=== PATIENT | male | born 1955 | race African-American/Black ===

== ENCOUNTER 2019-08-23 18:27 | Inpatient (IN) | payer OTHER ==
[~2019-08-23] VITALS: Ht 172.7 cm; Wt 49.9 kg
[2019-08-23 18:27] VITALS: BP 90/45
--- NOTE | 2019-08-23 18:27 | NUR ---
Patient PORTER QUINTANILLA from [facility], transferred to bed 6. RN evaluating patient at bedside.
[2019-08-23] MEDS ORDERED: ASCO500T45 PO (18:46)
[2019-08-23] MEDS ORDERED: DONE10TA10 PO (18:46)
[2019-08-23] MEDS ORDERED: ALLO100T21 PO (18:46)
[2019-08-23] MEDS ORDERED: TAMS0.4C96 PO (18:46)
[2019-08-23] MEDS ORDERED: PANT40EC PO (18:46)
[2019-08-23] MEDS ORDERED: HYDR-1100 PO (18:46)
[2019-08-23] MEDS ORDERED: DOCU-299 PO (18:46)
[2019-08-23] MEDS ORDERED: FLOR250 PO (18:46)
[2019-08-23] MEDS ORDERED: ACET-2619 PO (18:46)
[2019-08-23] MEDS ORDERED: NIFE60TE5 PO (18:46)
[2019-08-23] MEDS ORDERED: BISA-246 RC (18:46)
[2019-08-23] MEDS ORDERED: NA P133E RC (18:46)
[2019-08-23] MEDS ORDERED: FERR325E14 PO (18:46)
[2019-08-23] MEDS ORDERED: VITA1TAB44 PO (18:46)
[2019-08-23] MEDS ORDERED: CARV12.5 PO (18:46)
[2019-08-23] MEDS ORDERED: DOXA2TAB1 PO (18:46)
[2019-08-23] MEDS ORDERED: TRAV5SOL OP (18:46)
[2019-08-23] MEDS ORDERED: ERGO500028 PO (18:46)
--- NOTE | 2019-08-23 19:15 | NUR ---
REPORT GIVEN FROM JACKIE JOSHI. TRANSFER OF CARE GIVEN.
--- NOTE | 2019-08-23 19:15 | NUR ---
Pt report given to MADELYN Gann. Transfer of care at this time.
--- NOTE | 2019-08-23 19:16 | NUR ---
PT 64 Y/O MALE PORTER FROM [facility] FOR EVALUATON OF LEFT FOOT WOUND AND HEMOGLOBIN OF 6.2. PT BELONS TO DR. BAILEY [facility] WHO REQUESTED PATIENT TO BE SEEN HERE. PT WAS AT DIALYSIS TODAY AND ONLY RECEIVED 58 MINUTES WHEN THE ACCESS INFILTRATED PER DIALYSIS CENTER. PT ACCESS SITE IN LEFT UPPER ARM. PT AXO 2- PERSON, PLACE. PT RESPIRATIONS ARE EVEN AND UNLABORED. SKIN IS WARM AND DRY TO TOUCH. WOUND NOTED ON L FOOT. AND L BUTTOCKS AREA. PT HAS R ABOVE THE KNEE AMPUTATION. PT RESTING IN BED EYES OPEN. BED IN LOWEST POSITION AND LOCKED IN PLACE. MED HX: DM, HTN ALLERGIES: NKA
--- NOTE | 2019-08-23 19:22 | NUR ---
XRAY AT BEDSIDE.
--- NOTE | 2019-08-23 19:38 | NUR ---
EKG PERFORMED AT BEDSIDE
--- NOTE | 2019-08-23 19:57 | NUR ---
LAB AT BEDSIDE.
[2019-08-23 20:24] LABS: MEAN CORPUSCULAR HEMOGLOBIN 30 pg (27-31); MEAN CORPUSCULAR HGB CONC 30 g/dL (33-37); MEAN CORPUSCULAR VOLUME 99.7 fL (80-94); PLATELET COUNT (AUTO) 383 K/uL (140-450); RED BLOOD CELL COUNT(AUTO) 1.93 MIL/uL (4.20-6.10); RED CELL DISTRIBUTION WIDTH 17.2 % (11.6-13.7); WHITE BLOOD COUNT (AUTO) 19.4 K/uL (4.8-10.8)
--- NOTE | 2019-08-23 20:30 | NUR ---
PT RESTING IN BED HEAD UP EYES OPEN. RESPIRATIONS ARE EVEN AND UNLABORED. SKIN IS WARM AND DRY TO TOUCH. PT DENIES SOB, DENIES PAIN 0/10. PT EATING SANDWHICH AND DRINKING WATER. DAUGHTER AT BEDSIDE. BED IN LOWEST POSITION AND LOCKED IN PLACE. SIDERAIL UP.
[2019-08-23 20:53] LABS: HEMATOCRIT 19.2 % (36-52); HEMOGLOBIN 5.7 g/dL (12.0-18.0)
[2019-08-23 20:57] LABS: LYMPHOCYTES % (MANUAL) 7 % (20-46); MONOCYTES % (MANUAL) 3 % (5-12)
[2019-08-23 20:58] LABS: ALBUMIN 2.1 g/dL (3.4-5.0); ANION GAP 15.8 (8-16); CARBON DIOXIDE 31.1 mmol/L (21-32); POTASSIUM 3.9 mmol/L (3.5-5.1); TOTAL BILIRUBIN 0.4 mg/dL (0.0-1.0)
[2019-08-23 21:00] LABS: PROTHROMBIN TIME 10.8 secs (10.8-13.4)
[2019-08-23 21:01] LABS: CREATININE 4.8 mg/dL (0.7-1.3)
[2019-08-23] MEDS ORDERED: ONDANSETRON 4 MG/2 ML VIAL IVP PRN (21:25)
[2019-08-23] MEDS ORDERED: ACETAMINOPHEN 325 MG TAB PO PRN (21:25)
[2019-08-23] MEDS ORDERED: HYDROcodone/APAP 7.5/325 MG 1 TAB PO PRN (21:25)
--- NOTE | 2019-08-23 21:37 | NUR ---
DAUGHTER STATES SHE WANTS CALL WHEN PT GETS ADMITTED TO ROOM. JERE (DAUGHTER): [phone]
[2019-08-23 22:05] LABS: MAGNESIUM 2.2 mg/dL (1.8-2.4); PHOSPHORUS 6.1 mg/dL (2.5-4.9); THYROID STIMULATING HORMONE 0.66 uIU/mL (0.34-3.74)
--- NOTE | 2019-08-23 22:37 | NUR ---
PT REFUSED TO BE CHANGED OR RECIVE PERINEAL CARE.
--- NOTE | 2019-08-23 22:50 | NUR ---
Patient will be admitted to care of . Admited to TELE. Will go to room 118. Belongings list completed. Report to GLADIS JOSHI.
--- NOTE | 2019-08-23 22:50 | NUR ---
RECEIVED BEDSIDE REPORT FROM FISH MACHINE FEEDER FABIO. PT BROUGHT ON [facility] BEDREST. TRANSFERRED TO WOUND BED WITH 3 NURSES TOLERATED WELL. PT IS AAOX 2. RESPIRATIONS ARE EQUAL AND UNLABORED ON ROOM AIR. LUNG SOUNDS CLEAR. HAS IV ON RAC 20G. AV SHUNT ON SHANTAL PT REFUSED ASSESSMENT OF SHUNT. PT WITH MX WOUNDS. SACRAL PRESSURE ULCER D/C/I, PRESSURE ULCER ON L HEEL, GANGRENE ON L BIG TOE, ULCER TO LATERAL L FOOT. L 2 SMALL TOES AMPUTATED. R AKA. PT CURRENTLY REFUSING ASSESSMENT. C/C ABNORMAL LABS. DX ANEMIA. HGB 5.7 HCT 19.2L. BLOOD TRANSFUSION CONSENT SIGNED BY DAUGHTER AND ER MD. AND READY FOR BUSINESS CENTER MANAGER.MRSA OBTAINED AND SENT TO LAB. EDUCATED PT ON NEED FOR UA HAS A SUPRAPUBIC PUCKETT CATH. PT ALSO REFUSED. PT STATES, "NO, DONT TOUCH ME!" PT WITH CURRENT BM REFUSING TO BE CLEAN YELLING NO WHEN EDUCATING HIM ON NEED TO CLEAN. WILL TRY AGAIN LATER. PUCKETT DRAINING CLOUDY YELLOW URINE. LAST HD 08/23/2019 FOR ABOUT AN HOUR, OUTPUT UNKNOWN. VS:111/44 HR 82 97% RA, RR 16 99.1 DENIES PAIN. ORIENTED PT TO ROOM, CALL LIGHT, VISITING HOURS AND STAFF. CALL LIGHT IS WITHIN REACH. WILL CONTINUE TO MONITOR.
[2019-08-23 23:00] VITALS: BP 111/44
[2019-08-23] MEDS ORDERED: NACL 0.9% 1,000 ML IV SCH (23:00)
--- NOTE | 2019-08-23 23:15 | NUR ---
BLOOD TRANSFUSION STARTED. PRETRANSFUSION VS:111/44 HR 82 97% RA RR 16 99.1 DENIES PAIN. EDUCATED PT ON POSSIBLE REACTION S/S. PT VERBALIZED UNDERSTANDING. WILL MONITOR CLOSELY FIRST 15MIN.
--- NOTE | 2019-08-23 23:30 | NUR ---
NO S/S OF REACTION NOTED. BLOOD TRANSFUSION RATE INCREASE 100M/H. VS;119/49 HR 77, 98.7, 98% DENIES PAIN.
--- NOTE | 2019-08-24 | NUR ---
PT IN BED NO S/S OF PAIN OR DISTRESS NOTED. FLUIDS GOING ORDERED, PT DECLINED TO BE TURNED AND REPOSITIONED IN BED, SAYING THAT HE IS COMFORTABLE. V/S FOLLOWS: T 98.4 P 88 R 18 B/P 116/53 02 99% ON ROOM AIR. PT HAS NO C/C OF PAIN OR DISTRESS NOTED. DRESSINGS INTACT.
[2019-08-24] MEDS ORDERED: VANCOMYCIN PER PHARMACY MC PRN (00:55)
[2019-08-24] MEDS ORDERED: DEXTROSE 50% 50 ML SYR IVP PRN (00:55)
[2019-08-24] MEDS ORDERED: VANCOMYCIN 1,000 MG in DEXTROSE 5% 250 ML IV SCH (02:00)
[2019-08-24] MEDS ORDERED: VANCOMYCIN 1,000 MG VIAL ONE (02:45)
[2019-08-24] MEDS: DEXT 5% / NACL 0.45% 1,000 ML IV SCH (02:53)
--- NOTE | 2019-08-24 02:53 | NUR ---
NEW IV INSERTED ON R HAND 22G. VANCO NOW INFUSING PER ORDERS. PT TOLERATED WELL. ALL SAFETY MEASURES ARE IN PLACE. CALL LIGHT IS WITHIN REACH. WILL CONTINUE TO MONITOR.
--- NOTE | 2019-08-24 03:15 | NUR ---
BLOOD COMPLETE AT 0300. POST TRANSFUSION VS:98.4, 84, 124/48, DENIES PAIN. ALL SAFETY MEASURES ARE IN PLACE. WILL CONTINUE TO MONITOR
--- NOTE | 2019-08-24 03:50 | NUR ---
SECOND UNIT OF BLOOD STARTED. PRETRANSFUSION VS: 98.9 HR 83 18 135/54 DENIES PAIN. CALL LIGHT IS WITHIN REACH. WILL CONTINUE TO MONITOR.
[2019-08-24 04:00] VITALS: BP 136/62
--- NOTE | 2019-08-24 04:05 | NUR ---
NO S/S OF REACTION NOTED. VS: 98.4 HR 76 121/46 DENIES PAIN OR SOB. RATE INCREASE TO 100ML/H. CALL LIGHT IS WITHIN REACH. WILL CONTINUE TO MONITOR.
[2019-08-24] MEDS ORDERED: PIPERACILLIN/TAZOBACTAM 2.25 GM VIAL IV ONE (04:50)
[2019-08-24] MEDS: PIPERACILLIN/TAZOBACTAM 2.25 GM in DEXTROSE 5% 50 ML IV SCH ×2 (04:56→13:21)
--- NOTE | 2019-08-24 05:00 | NUR ---
PT IS SLEEPING COMFORTABLY IN BED WITH EYES CLOSED CHEST RISE AND FALL NOTED. NO S/S OF REACTION. VSS. CALL LIGHT IS WITHIN REACH.
[2019-08-24] MEDS: PANTOPRAZOLE 40 MG TABEC PO SCH (06:04)
[2019-08-24] MEDS: BLOOD GLUCOSE MONITORING 1 DEV DEV FS SCH ×4 (06:09→21:00)
--- NOTE | 2019-08-24 06:50 | NUR ---
2 UNIT OF PRBC COMPLETE. NO S/S OF REACTION. VSS. BLOOD GLUCOSE 144 NO COVERAGE NEEDED. ALL SAFETY MEASURES ARE IN PLACE. CALL LIGHT IS WITHIN REACH. PT IS STABLE. WILL ENDORSE TO DAY RN.
--- NOTE | 2019-08-24 07:20 | NUR ---
RECEIVED REPORT FROM TUTORING ASSISTANT NURSE FOR CONTINUITY OF CARE. PATIENT LYING DOWN IN BED, NO DISTRESS NOTED. DENIES ANY PAIN. AAOX2, CALM, COOPERATIVE, CONFUSED. SKIN COLOR APPROPRIATE TO ETHNICITY, WARM TO TOUCH. HAS LEFT FOOT GANGRENE AND SACRALCOCCYX WOUND, DRESSING DRY AND INTACT. SUPRAPUBIC CATHETER IN PLACE. IV SITE INTACT, PATENT, AND INFUSING IVF PER MD ORDERS. 2 UNITS OF PRBC COMPLETED BY NIGHT RN. RESPIRATIONS EVEN, UNLABORED, ON ROOM AIR. SAFETY MEASURES IN PLACE, CALL LIGHT WITHIN REACH. WILL CONTINUE TO MONITOR.
[2019-08-24 08:00] VITALS: BP 134/55
--- NOTE | 2019-08-24 08:42 | NUR ---
PATIENT HAS BEEN SCREENED AND CATEGORIZED HIGH NUTRITION RISK. PATIENT WILL BE SEEN WITHIN 1-2 DAYS OF ADMISSION. 08/24/19-08/25/[address]
--- NOTE | 2019-08-24 09:00 | NUR ---
WIRELESS WATCHER AT BEDSIDE LOOKING AT LEFT FOOT AND REVIEWING PLAN OF CARE WITH PATIENT. WILL CONTINUE TO MONITOR.
[2019-08-24 09:12] LABS: CHOL/HDL RATIO 2.7 (1-4.5)
[2019-08-24] MEDS: FAMOTIDINE 20 MG TAB PO SCH (10:04)
[2019-08-24] MEDS: CARVEDILOL 12.5 MG TAB PO SCH ×2 (10:04→16:48)
[2019-08-24] MEDS: NIFEdipine 60 MG TABER PO SCH (10:04)
[2019-08-24] MEDS: ALLOPURINOL 100 MG TAB PO SCH (10:04)
[2019-08-24] MEDS: DOCUSATE SODIUM 100 MG GELCAP PO SCH (10:04)
--- NOTE | 2019-08-24 11:04 | NUR ---
DC PLANNIN YRS OLD MALE PATIENT WAS ADMITTED [facility] FOR GANGRENE OF LEFT FOOT WITH A DX OF ANEMIA. PT HAS A HX OF ESRD ON DIALYSIS TTHS , HTN AND RT BKA. PT RESIDES AT [facility]. PT IS TREATED FOR H/H 5.7, WBC 19.4 WELL THE LEFT FOOT INFECTION, X-RAY OF LEFT FOOT PENDING. ADMINISTERED IV ABX VANCOMYCIN AND ZOSYN . 2 UNITS PRBC ORDERED , PODIATRY AND WOUND CONSULT, BLOOD AND WOUND CULTURE PENDING, CONTINUE HOME MEDICATION . DC PLAN TO GO BACK TO [facility] WHEN STABLE. Addendum: 08/26/19 at 1607 by Nimo Ayala CM POST OP DAY 1-S/P LEFT AKA 08/25/[address] WHAT[facility]. SURGICAL, CARDIO AND NEPHRO CONSULTS IN PLACE. STILL ON ZOSYN AND VANCO. DC PLAN TO [facility] PENDING SURGICAL RECOMMENDATIONS. Addendum: 08/27/19 at 1340 by Shannen Gr CM DC PLANNING: POST OP DAY #2 OF LEFT SIMIN , CONTINUE IV ABX VANCOMYCIN AND ZOSYN , HEMODIALYSIS TODAY. DC PLAN TO GO HOME WHEN STABLE CM TO FOLLOW Addendum: 09/01/19 at 1054 by Michelle POWELL Per Charge Nurse Ene, patient is not on isolation. I informed Chanelle from [facility] / , patient is ready to return to their facility. I faxed patient's clinical information to [facility] fax number . Addendum: 09/01/19 at 1515 by Michelle POWELL [facility], patient may go to room 204 bed 2 today, accepting MD is , Charge Nurse Ene made aware.
[2019-08-24 12:00] VITALS: BP 105/66
[2019-08-24 12:01] LABS: ANION GAP 14.8 (8-16); CARBON DIOXIDE 29.9 mmol/L (21-32); POTASSIUM 4.7 mmol/L (3.5-5.1)
[2019-08-24 12:04] LABS: BASOPHILS # (AUTO) 0.1 K/uL (0.00-0.22); BASOPHILS % (AUTO) 0.5 % (0.0-2.0); EOSINOPHILS # (AUTO) 0.1 K/uL (0-0.4); EOSINOPHILS % (AUTO) 0.4 % (0.0-4.0); HEMOGLOBIN 8.5 g/dL (12.0-18.0); LYMPHOCYTES # (AUTO) 1.3 K/uL (2.0-11.5); LYMPHOCYTES % (AUTO) 7.4 % (20.5-51.1); MEAN CORPUSCULAR HEMOGLOBIN 29 pg (27-31); MEAN CORPUSCULAR HGB CONC 32 g/dL (33-37); MEAN CORPUSCULAR VOLUME 91.9 fL (80-94); MONOCYTES # (AUTO) 0.6 K/uL (0.8-1.0); MONOCYTES % (AUTO) 3.4 % (1.7-9.3); NEUTROPHILS # (AUTO) 15.6 K/uL (1.8-7.7); NEUTROPHILS % (AUTO) 88.3 % (42.2-75.2); PLATELET COUNT (AUTO) 417 K/uL (140-450); RED BLOOD CELL COUNT(AUTO) 2.94 MIL/uL (4.20-6.10); RED CELL DISTRIBUTION WIDTH 21.4 % (11.6-13.7); WHITE BLOOD COUNT (AUTO) 17.7 K/uL (4.8-10.8)
[2019-08-24 12:05] LABS: CREATININE 5.2 mg/dL (0.7-1.3)
--- NOTE | 2019-08-24 12:59 | NUR ---
WOUND CARE EVALUATION NOTES: REASON FOR EVALUATION: SACRALCOCCYX WOUND WOUND ASSESSMENT DONE ON WITH THIS 64 Y/O MALE PATIENT ADMITTED FROM SNF TO [facility] WITH INITIAL DIAGNOSIS OF ANEMIA. PT. ADMITTED WITH UN-STAGEABLE PRESSURE ULCER TO SACRAL AREA AND HD T-TH-SAT. PAST MEDICAL HX: HTN, DM, DEMENTIA, DEPRESSION, PVD, GERD CONTRACTURES OF BLE AND RIGHT AKA AND LEFT 2ND DIGIT TOE AMPUTATION, ALL ABOVE INFORMATION OBTAINED FROM H&P. PT. IS AWAKE, FOLLOW DIRECTIONS, PT. SKIN WARM TO TOUCH, NEEDS ASSISTANCE IN TURNING. SUPRA PUBIC CATH PATENT WITH YELLOW URINE OUTPUT. INITIAL PLAN OF CARE DISCUSSED WITH PRIMARY RN. LEFT FOOT NOT ASSESSED AT THIS TIME DUE TO PT. WAS SEEN AND TREATMENT APPLIED THIS AM BY DR. KUHN, IN HOUSE PODIATRY SERVICE. PLEASE REFER TO PODIATRY CONSULTATION NOTE. PT. WAS SEEN BY SURGEON LEFT FOOT ULCERS AND WET GANGRENE AND PENDING SURGICAL INTERVENTION. COMORBIDITIES RELATED TO DELAY WOUND HEALING AND FURTHER SKIN BREAKS: INFECTION, DM, KIDNEY FAILURE WITH HD, LOW ALBUMIN LEVEL AND HOB ELEVATED MOST OF TIMES DUE TO MEDICAL REASONS. INTEGUMENTARY: -SUPRAPUBIC ALANNA-OSTOMY SKIN DRY AND INTACT -RIGHT AKA STUMP SKIN INTACT -PERIANAL EXTERNAL HEMORRHOIDS SKIN MOIST AND -SACRAL PRESSURE ULCER UN-STAGEABLE, 3X3.5CM, WOUND BED 100% YELLOW SLOUGH, ALANNA-WOUND HEALED SCAR PALE IN COLOR, NO ODOR. RECOMMENDATIONS: -CLEANSE LEFT FOOT WITH NS, APPLY SOAKED BETADINE XU. 4X4. WRAP WITH KERLIX ROLL SECURED WITH TAPE. QD AND PRN IF SOILING -CLEANSE SACRAL PRESSURE ULCER WITH NS. PAT DRY APPLY THERAHONEY GEL TO WOUND BED AND COVER WITH OPTI FOAM QD AND PRN IF SOILING . -CONTINUE TO FOLLOW SURGEON LEFT FOOT POSSIBLE AMPUTATION -OFFLOAD BILATERAL HEELS BY PLACING PILLOWS UNDER CALVES AT ALL TIMES, UNLESS OTHERWISE CONTRAINDICATED -KEEP SKIN CLEAN AND DRY AT ALL TIMES. -PRESSURE REDISTRIBUTION SURFACE THERAPY. RECOMMENDATIONS DISCUSSED WITH PRIMARY RN. PLEASE CONTACT WOUND CARE NURSE FOR ANY QUESTIONS AND CHANGES IN SKIN CONDITION.
[2019-08-24] MEDS: GAUZE TP SCH (13:21)
--- NOTE | 2019-08-24 13:22 | NUR ---
PATIENT LYING DOWN IN BED SLEEPING, AROUSABLE BY VOICE. NO DISTRESS NOTED. CONDITION UNCHANGED. SCHEDULED MEDICATIONS DUE GIVEN. WILL CONTINUE TO MONITOR.
[2019-08-24] MEDS: THERAHONEY GEL 42.5 GM TP SCH (13:59)
--- NOTE | 2019-08-24 14:22 | NUR ---
HD NURSE AT BEDSIDE TO PERFORM HD. WILL CONTINUE TO MONITOR.
--- NOTE | 2019-08-24 15:39 | NUR ---
SAUL assessment/discharge plan High Risk DC Screen Yes Name: Julieta Kevin Home Relationship: daughter Pre-Admission Living Arrangements: SNF Healthcare Decision Maker: Other Other: Julieta Kevin Advance Directive No Tentative Discharge Plan Summary: Patient is a 64 year old male admitted for anemia. I called and spoke with Venessa from [facility] , patient is on a 7 day bed hold and is one of their long goods drier patients. Venessa referred me to speak with patient's nurse Nas at [facility] regarding Advance Directive. Per Nas, patient does not have an Advance Directive. Electronics Maintenance Technician and/or Architecture Instructor will follow up as needed. Signature: SAUL Allan Date: Aug 24, 2019
[2019-08-24] MEDS: EPOETIN ALFA 10,000 UNITS/ML VIAL IV SCH (15:57)
[2019-08-24 16:00] VITALS: BP 130/58
--- NOTE | 2019-08-24 16:17 | NUR ---
08/24/19 RD INITIAL ASSESSMENT COMPLETED PLEASE REFER TO NUTRITION ASSESSMENT UNDER CARE ACTIVITY FOR ESTIMATED NUTRITIONAL NEEDS. 1. CONTINUE CCHO 60GM AND HIGH PROTEIN DIET TOLERATED 2. RECOMMEND NEPRO TID AND TAYO BID FOR WOUND HEALING 3. ENCOURAGE INCREASING PO INTAKE 4. RD TO FOLLOW-UP 2-3 DAYS, HIGH RISK MOON BOO, RD
--- NOTE | 2019-08-24 17:00 | NUR ---
HD COMPLETED, 2L OUT. PATIENT IN STABLE CONDITION
--- NOTE | 2019-08-24 19:23 | NUR ---
GAVE REPORT TO CONSULTING DATABASE ADMINISTRATOR NURSE FOR CONTINUITY OF CARE. PATIENT IN STABLE CONDITION.
--- NOTE | 2019-08-24 19:30 | NUR ---
RECEIVED REPORT FROM MARIAH JOSHI DAYSHIFT NURSE AT BEDSIDE FOR CONTINUITY OF CARE, PT IN STABLE CONDITION.
[2019-08-24 20:00] VITALS: BP 122/59
--- NOTE | 2019-08-24 20:00 | NUR ---
PT IN BED SITTING UP AOX1, ON ROOM AIR WITH NO S/S OF PAIN OR DISTRESS NOTED. PT NOTED WITH CONTRACTIONS ON UPPER AND LOWER LIMBS. HE ALSO HAS A DRESSING ON LEFT FOOT , WHICH IS NOTED WITH GANGRENE. DRESSING DRY AND INTACT WITH MINIMAL DRAINAGE. PT ALSO HAS R AKA. HE HAS 2 IV SITES RAC 20G AND R/H 22G . PT RUNNING D5 AND 1/2 NS VIA R HAND. HE HAS A LEFT AV SHUNT FELT THRILL AND BRUIT.PT HAS A SUPRAPUBIC PUCKETT CATH DRAINING YELLOW URINE. ALL FALLS PRECAUTIONS IN PLACE. VITAL SIGNS FOLLOWS: T 98.4 P 88 R 18 B/P 116/53 02 99% ON ROOM AIR. ALL FALLS PROTOCOL IN PLACE.
[2019-08-24] MEDS: LATANOPROST 0.005% OP 2.5 ML BTL OP SCH (21:00)
[2019-08-24] MEDS ORDERED: NON-FORMULARY ITEM (Travoprost (Travatan Z 5 Ml) 1 DROP) OP SCH (21:00)
--- NOTE | 2019-08-24 21:00 | NUR ---
PT RECEIVED ALL DUE MEDS AT THIS TIME. PT WAS TURNED, CHANGED AND REPOSITIONED. ALL FALLS PRECAUTIONS IN PLACE AND CALL THOMAS IN REACH.
[2019-08-25] VITALS: BP 116/53
--- NOTE | 2019-08-25 | NUR ---
PT WITH BP OF 87/41, WILL RETAKE BLOOD PRESSURE Addendum: 08/25/19 at 2333 by Dana Marie RN DELETE NOTE
--- NOTE | 2019-08-25 | NUR ---
PT IN BED NO C/O VOICED HE HAS FLUIDS D5 1/2 NS RUNNING ORDERED VIA RAC. PT DECLINED TO BE TURNED AND REPOSITIONED AT THIS TIME. V/S FOLLOWS: T 98.1 P 60 R 18 B/P 107/41 02 92% ON ROOM AIR. ALL FALLS PRECAUTIONS IN PLACE.
[2019-08-25] MEDS: NIFEdipine 60 MG TABER PO SCH ×3 (01:40→22:02)
[2019-08-25] MEDS: PIPERACILLIN/TAZOBACTAM 2.25 GM in DEXTROSE 5% 50 ML IV SCH ×4 (01:40→22:01)
[2019-08-25] MEDS: hydrALAZINE 25 MG TAB PO SCH ×2 (01:40→22:03)
[2019-08-25] MEDS: DONEPEZIL 10 MG TAB PO SCH ×2 (01:41→22:04)
[2019-08-25] MEDS: DOXAZOSIN 2 MG TAB PO SCH ×2 (01:41→22:03)
[2019-08-25] MEDS: TAMSULOSIN 0.4 MG CAP PO SCH ×2 (01:42→22:07)
[2019-08-25] MEDS: DOCUSATE SODIUM 100 MG GELCAP PO SCH ×4 (01:42→22:05)
[2019-08-25 04:00] VITALS: BP 113/53
--- NOTE | 2019-08-25 04:00 | NUR ---
V/S STABLE IV SITE ON R AC INTACT R HAND IV INFILTRATED.
[2019-08-25] MEDS: PANTOPRAZOLE 40 MG TABEC PO SCH (05:53)
[2019-08-25] MEDS: BLOOD GLUCOSE MONITORING 1 DEV DEV FS SCH ×4 (05:54→21:50)
[2019-08-25] MEDS: DEXT 5% / NACL 0.45% 1,000 ML IV SCH (05:55)
--- NOTE | 2019-08-25 06:30 | NUR ---
IV SITE INFILTRATED, X5 ATTEMPTS COULD NOT ADMINISTER AM ZOSYN NO IV ACCESS, WILL ENDORSE TO AM SHIFT , F/S 131 NO COVERAGE NEEDED.
--- NOTE | 2019-08-25 07:20 | NUR ---
RECEIVED REPORT FROM DAIRY STORE MANAGER NURSE FOR CONTINUITY OF CARE. PATIENT LYING DOWN IN BED, NO DISTRESS NOTED. DENIES ANY PAIN. AAOX2, CALM, COOPERATIVE, CONFUSED. SKIN COLOR APPROPRIATE TO ETHNICITY, WARM TO TOUCH. HAS LEFT FOOT GANGRENE AND SACRALCOCCYX WOUND, DRESSING DRY AND INTACT. SUPRAPUBIC CATHETER IN PLACE. IV SITE LEAKING, WILL INSERT NEW ONE. RESPIRATIONS EVEN, UNLABORED, ON ROOM AIR. SAFETY MEASURES IN PLACE, CALL LIGHT WITHIN REACH. WILL CONTINUE TO MONITOR.
[2019-08-25 07:44] LABS: ANION GAP 13.6 (8-16); CARBON DIOXIDE 29.4 mmol/L (21-32); CREATININE 3.8 mg/dL (0.7-1.3)
[2019-08-25 07:51] LABS: MAGNESIUM 1.8 mg/dL (1.8-2.4); PHOSPHORUS 5.3 mg/dL (2.5-4.9)
[2019-08-25 08:00] VITALS: BP 105/57
[2019-08-25] MEDS: CARVEDILOL 12.5 MG TAB PO SCH ×2 (08:00→17:00)
[2019-08-25 08:05] LABS: BASOPHILS # (AUTO) 0.1 K/uL (0.00-0.22); BASOPHILS % (AUTO) 0.9 % (0.0-2.0); EOSINOPHILS % (AUTO) 0.3 % (0.0-4.0); HEMATOCRIT 25.9 % (36-52); HEMOGLOBIN 8.2 g/dL (12.0-18.0); LYMPHOCYTES # (AUTO) 1.4 K/uL (2.0-11.5); LYMPHOCYTES % (AUTO) 8.2 % (20.5-51.1); MEAN CORPUSCULAR HEMOGLOBIN 29 pg (27-31); MEAN CORPUSCULAR HGB CONC 32 g/dL (33-37); MEAN CORPUSCULAR VOLUME 91.8 fL (80-94); MONOCYTES # (AUTO) 0.5 K/uL (0.8-1.0); NEUTROPHILS # (AUTO) 14.7 K/uL (1.8-7.7); NEUTROPHILS % (AUTO) 87.6 % (42.2-75.2); PLATELET COUNT (AUTO) 407 K/uL (140-450); RED BLOOD CELL COUNT(AUTO) 2.82 MIL/uL (4.20-6.10); WHITE BLOOD COUNT (AUTO) 16.8 K/uL (4.8-10.8)
[2019-08-25 08:07] LABS: FOLIC ACID > 20.00 ng/mL (>3.0)
[2019-08-25] MEDS: ALLOPURINOL 100 MG TAB PO SCH (09:44)
[2019-08-25] MEDS: FAMOTIDINE 20 MG TAB PO SCH (09:45)
--- NOTE | 2019-08-25 09:57 | NUR ---
PATIENT LYING DOWN IN BED. NO DISTRESS NOTED. DENIES ANY PAIN. SCHEDULED MEDICATIONS DUE GIVEN. WILL CONTINUE TO MONITOR.
[2019-08-25] MEDS ORDERED: VANCOMYCIN 1,000 MG in DEXTROSE 5% 250 ML IV SCH (11:00)
[2019-08-25 12:00] VITALS: BP 117/52
[2019-08-25] MEDS: THERAHONEY GEL 42.5 GM TP SCH (13:56)
[2019-08-25] MEDS: GAUZE TP SCH (13:56)
--- NOTE | 2019-08-25 13:58 | NUR ---
PATIENT SITTING DOWN IN BED WATCHING TV. NO DISTRESS NOTED. DENIES ANY PAIN. SCHEDULED MEDICATIONS DUE GIVEN. WILL CONTINUE TO MONITOR.
--- NOTE | 2019-08-25 15:34 | NUR ---
OR NURSES AT BEDSIDE TO TAKE PATIENT FOR LEFT AKA. WILL CONTINUE OT MONITOR WHEN PATIENT RETURNS ON UNIT.
[2019-08-25] MEDS ORDERED: PROPOFOL 200 MG/20 ML VIAL IV ONE (15:40)
[2019-08-25] MEDS ORDERED: SEVOFLURANE 250 ML BTL INH ONE (15:40)
[2019-08-25] MEDS ORDERED: BUPIVACAINE-MPF 0.25% 30 ML VIAL INJ ONE (15:47)
[2019-08-25 16:00] VITALS: BP 115/63
[2019-08-25] MEDS ORDERED: NACL 0.9% 1,000 ML IV SCH (16:37)
[2019-08-25] MEDS ORDERED: diphenhydrAMINE 50 MG/ML VIAL IVP PRN (16:40)
[2019-08-25] MEDS ORDERED: HYDROmorphone 1 MG/ML AMP IVP PRN (16:40)
[2019-08-25] MEDS ORDERED: ONDANSETRON 4 MG/2 ML VIAL IVP PRN (16:40)
--- NOTE | 2019-08-25 17:56 | NUR ---
PATIENT BACK FROM OR. PATIENT AWAKE, CALM, COOPERATIVE, DENIES PAIN. IN STABLE CONDITION. WILL CONTINUE TO MONITOR.
--- NOTE | 2019-08-25 18:01 | NUR ---
SCHEDULED BLOOD PRESSURE MEDICATION NOT GIVEN AT THIS TIME PATIENT JUST RETURNED FROM SURGERY AND VITALS ARE WNL.
--- NOTE | 2019-08-25 19:25 | NUR ---
GAVE REPORT TO SEAL EXTRUSION OPERATOR NURSE FOR CONTINUITY OF CARE. PATIENT IN STABLE CONDITION.
--- NOTE | 2019-08-25 19:26 | NUR ---
PT AWAKE ALERT O X 2,BED BOUND, WITH OLD R AKA, AND NEW L AKA JUST RECENTLY DONE TODAY 08/25/[address] WHATLEY. PT IN SUPOINE POSITION PROPPLED WITH PILLOWS ON HIS BILATERAL LE. WITH ONGOING IVF PATENT AND INTACT R AC G 22. DAUGHTER JOSELITO AT BEDSIDE. PLACED ON FALL RISK PRECAUTION, CALL LIGHT WITHIN REACH.WILL CONTINUE TO MONITOR
[2019-08-25 19:51] VITALS: BP 121/59
--- NOTE | 2019-08-25 20:00 | NUR ---
PT TRIED TO GET URINE C/S BUT PT IS OLIGURIC, NO URINE COMING OUT FROM THE CATHETER. URINE BAG CONTENTS WERE UNSTERILE IF I GET IT FROM THERE. WILL WAIT FOR FRESH URINE TO COME OUT OF CATHETER. Addendum: 08/25/19 at 2340 by Dana Marie RN PT HAS A SUPRAPUBIC CATHETER
[2019-08-25] MEDS: LATANOPROST 0.005% OP 2.5 ML BTL OP SCH (22:11)
[2019-08-25] MEDS ORDERED: CRUSHER, PILL MC ONE (22:24)
--- NOTE | 2019-08-25 23:20 | NUR ---
CLEANED PT, SMALL BM NOTED, TURNED PATIENT. TOLERATED PROCEDURE, PT NOT IN PAIN . NOT FACIAL GRIMACING
--- NOTE | 2019-08-25 23:33 | NUR ---
PT WITH BP OF 87/41, WILL RETAKE BLOOD PRESSURE
[2019-08-26] MEDS ORDERED: NACL 0.9% 250 ML IV ONE
--- NOTE | 2019-08-26 | NUR ---
RETOOK PT'S BP= 89/40. INFORMED DR. JASSO. AND WILL ORDER BOLUS. WILL CARRY OUT ORDER
[2019-08-26 00:56] VITALS: BP 90/47
[2019-08-26] MEDS: DEXT 5% / NACL 0.45% 1,000 ML IV SCH (03:00)
[2019-08-26 04:00] VITALS: BP 99/44
--- NOTE | 2019-08-26 04:00 | NUR ---
PTS LATEST BP IS 99/44, HR 72, DR. JASSO AWARE.
[2019-08-26] MEDS: BLOOD GLUCOSE MONITORING 1 DEV DEV FS SCH ×4 (05:23→20:28)
[2019-08-26] MEDS: PIPERACILLIN/TAZOBACTAM 2.25 GM in DEXTROSE 5% 50 ML IV SCH ×3 (05:23→20:29)
--- NOTE | 2019-08-26 05:54 | NUR ---
INFORMED DR. JASSO THAT ATTEMPTED TO GET THE URINE C/S BUT PT IS OLIGURIC. TRYING TO GET IT FROM THE SUPRAPUBIC CATHETER (ASEPTIC TECHNIQUE) AND NOT IN THE URINE BAG.
[2019-08-26] MEDS: PANTOPRAZOLE 40 MG TABEC PO SCH (06:12)
--- NOTE | 2019-08-26 06:48 | NUR ---
PT AWAKE, ALERT ORIENTED X 2, PT IN STABLE CONDITION, NO SIGNS AND SYMPTOMS OF PAIN, WILL ENDORSE TO NEXT SHIFT
[2019-08-26 06:58] LABS: ANION GAP 12.8 (8-16); CARBON DIOXIDE 27.2 mmol/L (21-32)
[2019-08-26 07:07] LABS: CREATININE 4.7 mg/dL (0.7-1.3)
--- NOTE | 2019-08-26 07:20 | NUR ---
RECEIVED REPORT FROM SCREEN WRITER NURSE FOR CONTINUITY OF CARE. PATIENT LYING DOWN IN BED, NO DISTRESS NOTED. DENIES ANY PAIN. AAOX2, CALM, COOPERATIVE, CONFUSED. SKIN COLOR APPROPRIATE TO ETHNICITY, WARM TO TOUCH. LEFT AKA SURGERY DONE YESTERDAY, DRESSING DRY AND INTACT, NO BLEEDING NOTED. SACRALCOCCYX WOUND NOTED, DRESSING DRY AND INTACT. SUPRAPUBIC CATHETER IN PLACE. IV SITE INTACT, PATENT, AND INFUSING IVF PER MD ORDERS, WILL INSERT NEW ONE. RESPIRATIONS EVEN, UNLABORED, ON ROOM AIR. SAFETY MEASURES IN PLACE, CALL LIGHT WITHIN REACH. WILL CONTINUE TO MONITOR.
[2019-08-26 07:36] LABS: BASOPHILS # (AUTO) 0.1 K/uL (0.00-0.22); BASOPHILS % (AUTO) 0.6 % (0.0-2.0); EOSINOPHILS % (AUTO) 0.3 % (0.0-4.0); HEMATOCRIT 23.8 % (36-52); HEMOGLOBIN 7.6 g/dL (12.0-18.0); LYMPHOCYTES # (AUTO) 1.1 K/uL (2.0-11.5); LYMPHOCYTES % (AUTO) 9.3 % (20.5-51.1); MEAN CORPUSCULAR HEMOGLOBIN 29 pg (27-31); MEAN CORPUSCULAR HGB CONC 32 g/dL (33-37); MEAN CORPUSCULAR VOLUME 91.7 fL (80-94); MONOCYTES # (AUTO) 0.5 K/uL (0.8-1.0); MONOCYTES % (AUTO) 3.8 % (1.7-9.3); NEUTROPHILS # (AUTO) 10.3 K/uL (1.8-7.7); PLATELET COUNT (AUTO) 395 K/uL (140-450); RED CELL DISTRIBUTION WIDTH 20.2 % (11.6-13.7); WHITE BLOOD COUNT (AUTO) 11.9 K/uL (4.8-10.8)
[2019-08-26 07:57] LABS: FERRITIN 2887 ng/mL (30 - 400); TRANSFERRIN 72 mg/dL (200 - 370)
[2019-08-26 08:00] VITALS: BP 124/54
[2019-08-26] MEDS: CARVEDILOL 12.5 MG TAB PO SCH ×2 (08:00→16:32)
[2019-08-26] MEDS: NIFEdipine 60 MG TABER PO SCH ×3 (08:46→23:29)
[2019-08-26] MEDS: FAMOTIDINE 20 MG TAB PO SCH (08:51)
[2019-08-26] MEDS: ALLOPURINOL 100 MG TAB PO SCH (08:51)
[2019-08-26] MEDS: DOCUSATE SODIUM 100 MG GELCAP PO SCH ×2 (08:51→20:32)
--- NOTE | 2019-08-26 09:00 | NUR ---
PATIENT LYING DOWN IN BED WATCHING TV. NO DISTRESS NOTED. DENIES ANY PAIN. SCHEDULED MEDICATIONS DUE GIVEN. WILL CONTINUE TO MONITOR.
[2019-08-26 12:00] VITALS: BP 135/65
[2019-08-26] MEDS: INSULIN LISPRO SLIDING SCALE 100 UNITS/ML VIAL SUBQ PRN (12:49)
[2019-08-26] MEDS: THERAHONEY GEL 42.5 GM TP SCH (12:53)
[2019-08-26] MEDS: GAUZE TP SCH (12:53)
--- NOTE | 2019-08-26 12:56 | NUR ---
PATIENT SITTING DOWN IN BED WITH LUNCH TRAY IN FRONT. NO DISTRESS NOTED. DENIES ANY PAIN. SCHEDULED MEDICATIONS DUE GIVEN. WILL CONTINUE TO MONITOR.
[2019-08-26 16:00] VITALS: BP 127/60
--- NOTE | 2019-08-26 16:32 | NUR ---
PATIENT LYING DOWN IN BED WATCHING TV. NO DISTRESS NOTED. DENIES ANY PAIN. CONDITION UNCHANGED. WILL CONTINUE TO MONITOR.
--- NOTE | 2019-08-26 19:18 | NUR ---
GAVE REPORT TO PRODUCTION UTILITY WORKER NURSE FOR CONTINUITY OF CARE. PATIENT IN STABLE CONDITION.
[2019-08-26 20:00] VITALS: BP 135/68
[2019-08-26] MEDS: LATANOPROST 0.005% OP 2.5 ML BTL OP SCH (20:31)
[2019-08-26] MEDS: DOXAZOSIN 2 MG TAB PO SCH (20:32)
[2019-08-26] MEDS: DONEPEZIL 10 MG TAB PO SCH (20:32)
[2019-08-26] MEDS: TAMSULOSIN 0.4 MG CAP PO SCH (20:32)
[2019-08-26] MEDS: hydrALAZINE 25 MG TAB PO SCH (20:38)
--- NOTE | 2019-08-26 20:40 | NUR ---
CECILE ZIMMER BP 135/68, HR 90, WILL CHECK THE BP LATER AND INFORM DRMakayla Addendum: 08/26/19 at 2041 by Dana Marie RN CECILE HELD, BUT ADALAT WILL BE GIVEN
--- NOTE | 2019-08-26 20:56 | NUR ---
PT SAID HE IS NOT IN PAIN TODAY, LEFT BKA. NO PAIN MEDS GIVEN FOR NOW
--- NOTE | 2019-08-26 21:00 | NUR ---
HELD THE COLACE BEC PT IS HAVING DIARRHEA.
--- NOTE | 2019-08-26 22:55 | NUR ---
TALKED TO MUSA RE; DIALYSIS OF PATIENT ON TUESDAY, MISSED DIALYSIS TUESDAY DUE TO POST-OP L BKA.MUSA SAID WHE WILL FOLOW UP ORDER WITH DR. HENRIQUEZ. MUSA AWARE THAT BUN 40 AND CREA 4.7 GETTEING HIGHER NEEDS DIALYSIS
--- NOTE | 2019-08-26 23:27 | NUR ---
DR. JASSO AWARE, BP IS 153/79, CAN GIVE THE SCHEDULE 2100 DOSE NOW
[2019-08-27] VITALS: BP 153/79
[2019-08-27] MEDS: DEXT 5% / NACL 0.45% 1,000 ML IV SCH (03:00)
[2019-08-27 04:00] VITALS: BP 151/65
--- NOTE | 2019-08-27 04:10 | NUR ---
INFORMED DR. JASSO THAT PT HAS A NEW WOUND ON THE LEFT PERINEUM. DR. JASSO AWARE. SHE SAID SHE WILL PUT THE ORDERS
[2019-08-27] MEDS: PIPERACILLIN/TAZOBACTAM 2.25 GM in DEXTROSE 5% 50 ML IV SCH ×3 (04:52→20:27)
[2019-08-27] MEDS: BLOOD GLUCOSE MONITORING 1 DEV DEV FS SCH ×4 (05:48→19:58)
[2019-08-27] MEDS: PANTOPRAZOLE 40 MG TABEC PO SCH (06:37)
--- NOTE | 2019-08-27 06:56 | NUR ---
PT AWAKE ALERT ORINRTED X 2, PT NON AMBULATORY, PY IN STABLE CONDITION AT THIS TIME. POSSIBLE DIALYSIS TODAY WILL ENDORSE TO NEXT SHIFT.
[2019-08-27 07:12] LABS: ANION GAP 16.6 (8-16); POTASSIUM 4.6 mmol/L (3.5-5.1)
[2019-08-27 07:32] LABS: CREATININE 5.5 mg/dL (0.7-1.3)
--- NOTE | 2019-08-27 07:45 | NUR ---
RECEIVED PATIENT FROM CASING TIER NURSE. PATIENT IS AWAKE. AOX2 TO NAME AND PLACE. RESPIRATIONS EVEN AND UNLABORED, ROOM AIR. VISIBLE CHEST RISE NOTED. ON TELE MONITORING. ABDOMEN SOFT AND ROUND. PATIENT IS NON-AMBULATORY. SKIN WARM AND DRY. BILATERAL BKA NOTED. LEFT BKA HAS DRESSING. NO DRAINAGE NOTED. DR. WHATLEY WILL DO DRESSING CHANGE LATER TODAY. PATIENT HAS SUPRAPUBIC CATHETER. DRESSING INTACT. IV IN THE RIGHT FOREARM G 22 RUNNING D51/2NS AT 20 ML/HR. IV PATENT AND INTACT. BED IN LOW POSITION. CALL LIGHT IS WITHIN REACH. WILL CONTINUE TO MONITOR
[2019-08-27 08:00] VITALS: BP 159/63
[2019-08-27] MEDS: CARVEDILOL 12.5 MG TAB PO SCH ×2 (08:00→17:00)
[2019-08-27] MEDS: NIFEdipine 60 MG TABER PO SCH ×2 (08:48→20:28)
[2019-08-27] MEDS: ALLOPURINOL 100 MG TAB PO SCH (08:48)
[2019-08-27] MEDS: FAMOTIDINE 20 MG TAB PO SCH (08:48)
[2019-08-27] MEDS: EPOETIN ALFA 10,000 UNITS/ML VIAL IV SCH (08:49)
[2019-08-27] MEDS: DOCUSATE SODIUM 100 MG GELCAP PO SCH ×2 (08:58→20:29)
--- NOTE | 2019-08-27 08:58 | NUR ---
GIVEN MORNING MEDICATIONS PO. HEPARIN SUBQ IN THE RIGHT UPPER ARM. HEPARIN 365. PATIENT TOLERATED WELL. EXPLAINED TO PATIENT INDICATIONS. PATIENT VERBALIZED UNDERSTANDING. WILL CONTINUE TO MONITOR
--- NOTE | 2019-08-27 08:58 | NUR ---
HELD COREG BECAUSE PATIENT WILL HAVE DIALYSIS AND COLACE BECAUSE PATIENT HAS DIARRHEA.
[2019-08-27 10:02] LABS: BASOPHILS # (AUTO) 0.1 K/uL (0.00-0.22); EOSINOPHILS % (AUTO) 0.4 % (0.0-4.0); HEMATOCRIT 24.2 % (36-52); HEMOGLOBIN 7.8 g/dL (12.0-18.0); MEAN CORPUSCULAR HEMOGLOBIN 30 pg (27-31); MEAN CORPUSCULAR HGB CONC 32 g/dL (33-37); MEAN CORPUSCULAR VOLUME 92.4 fL (80-94); MONOCYTES # (AUTO) 0.6 K/uL (0.8-1.0); MONOCYTES % (AUTO) 5.3 % (1.7-9.3); NEUTROPHILS # (AUTO) 9.1 K/uL (1.8-7.7); NEUTROPHILS % (AUTO) 84.3 % (42.2-75.2); PLATELET COUNT (AUTO) 381 K/uL (140-450); RED BLOOD CELL COUNT(AUTO) 2.62 MIL/uL (4.20-6.10); RED CELL DISTRIBUTION WIDTH 20.2 % (11.6-13.7); WHITE BLOOD COUNT (AUTO) 10.7 K/uL (4.8-10.8)
--- NOTE | 2019-08-27 10:40 | NUR ---
DAUGHTER, AILIN, GAVE VERBAL CONSENT VIA TELEPHONE FOR PATIENT'S HEMODIALYSIS. 2 RN VERIFICATION DONE WITH MADELYN NGUYEN.
--- NOTE | 2019-08-27 11:44 | NUR ---
DRESSING CHANGED WITH DR. BAILEY. NO DRAINAGE. ALDO INTACT. PLACED XEROFOAM AND WRAPPED WITH KERLEX AND BROWN BANDAGE. . PATIENT TOLERATED WELL. Addendum: 08/27/19 at 1409 by Princess Yamilex Suarez RN FOR THE SURGICAL SITE S/P LEFT AKA
[2019-08-27 12:00] VITALS: BP 122/58
[2019-08-27] MEDS: INSULIN LISPRO SLIDING SCALE 100 UNITS/ML VIAL SUBQ PRN ×3 (12:11→20:37)
--- NOTE | 2019-08-27 12:12 | NUR ---
GIVEN 2 UNITS OF INSULIN FOR BLOOD SUGAR 181 IN THE RIGHT INNER ARM. EXPLAINED TO PATIENT MEDICATION. PATIENT VERBALIZED UNDERSTANDING. WILL CONTINUE TO MONITOR
--- NOTE | 2019-08-27 12:39 | NUR ---
PATIENT IS EATING LUNCH AT THIS TIME. NO SIGNS OF DISTRESS NOTED. WILL CONTINUE TO MONITOR
--- NOTE | 2019-08-27 12:41 | NUR ---
08/27/19 RD FOLLOW UP COMPLETED PLEASE REFER TO NUTRITION ASSESSMENT UNDER CARE ACTIVITY FOR ESTIMATED NUTRITIONAL NEEDS. 1. RECOMMEND RENAL AND CCHO 60GM 2. RECOMMEND NEPRO TID AND TAYO BID FOR WOUND HEALING 3. ENCOURAGE INCREASING PO INTAKE 4. RD TO FOLLOW-UP 2-3 DAYS, HIGH RISK MOON BOO, RD
--- NOTE | 2019-08-27 13:00 | NUR ---
HANG ZOSYN VIA IVPB. EXPLAINED TO PATIENT MEDICATION. PATIENT VERBALIZED UNDERSTANDING. BED IN LOW POSITION. CALL LIGHT IS WITHIN REACH. WILL CONTINUE TO MONITOR
[2019-08-27] MEDS: THERAHONEY GEL 42.5 GM TP SCH (13:05)
[2019-08-27] MEDS: GAUZE TP SCH (13:05)
--- NOTE | 2019-08-27 13:11 | NUR ---
CHANGED PRESSURE ULCER DRESSING. CLEANED WITH NS, PAT DRIED, APPLIED THERAHONEY GEL AND OPTIFOAM DRESSING. PATIENT TOLERATED. ELEVATED LEGS WITH PILLOW.
--- NOTE | 2019-08-27 14:00 | NUR ---
OCCULT BLOOD COLLECTED
--- NOTE | 2019-08-27 14:07 | NUR ---
PATIENT STARTED DIALYSIS AT THIS TIME.
--- NOTE | 2019-08-27 15:21 | NUR ---
PATIENT IS STILL HAVING DIALYSIS. WILL CONTINUE TO MONITOR
[2019-08-27 16:00] VITALS: BP 120/88
[2019-08-27] MEDS: NACL 0.9% 1,000 ML IV SCH (17:29)
--- NOTE | 2019-08-27 17:30 | NUR ---
DIALYSIS DONE. OUTPUT OF 2 LITERS
--- NOTE | 2019-08-27 18:20 | NUR ---
GIVEN INSULIN THE IN THE RIGHT ABD FOR BLOOD SUGAR 172.
--- NOTE | 2019-08-27 19:13 | NUR ---
ENDORSED TO STRUCTURAL STEEL EQUIPMENT ERECTOR NURSE. PATIENT IS IN STABLE CONDITION.
--- NOTE | 2019-08-27 19:58 | NUR ---
BS CHECKED, 172, WILL ADMINISTER INSULIN MD ORDERED.
[2019-08-27 20:00] VITALS: BP 116/56
[2019-08-27] MEDS: LATANOPROST 0.005% OP 2.5 ML BTL OP SCH (20:28)
[2019-08-27] MEDS: TAMSULOSIN 0.4 MG CAP PO SCH (20:29)
[2019-08-27] MEDS: DONEPEZIL 10 MG TAB PO SCH (20:29)
--- NOTE | 2019-08-27 20:37 | NUR ---
GIVEN ZOSYN, XALATAN, NIFEDIPINE, DONEPEZIL, DOXAZOSIN, COLACE, HEPARIN, TAMSULOSIN MD ORDERED. HELD HYDRALAZINE D/T SBP <120, 116/56. PT TOLERATED WELL. WILL CONTINUE TO MONITOR.
[2019-08-27] MEDS: hydrALAZINE 25 MG TAB PO SCH (20:59)
[2019-08-27] MEDS: DOXAZOSIN 2 MG TAB PO SCH (21:02)
--- NOTE | 2019-08-27 23:55 | NUR ---
PT HAD BM. CHANGED PT WITH WHISKEY FILTERER, DAVIE. VS CHECKED, WITHIN PT'S BASELINE. WILL CONTINUE TO MONITOR.
[2019-08-28] VITALS: BP 144/61
--- NOTE | 2019-08-28 02:10 | NUR ---
PT SLEEPING IN BED. NO ACUTE DISTRESS NOTED.
[2019-08-28 04:00] VITALS: BP 135/58
[2019-08-28] MEDS: PIPERACILLIN/TAZOBACTAM 2.25 GM in DEXTROSE 5% 50 ML IV SCH ×3 (04:10→21:21)
--- NOTE | 2019-08-28 04:10 | NUR ---
VS CHECKED, WITHIN PT'S BASELINE. GIVEN ZOSYN MD ORDERED. PT TOLERATED WELL.
[2019-08-28] MEDS: PANTOPRAZOLE 40 MG TABEC PO SCH (06:06)
[2019-08-28] MEDS: BLOOD GLUCOSE MONITORING 1 DEV DEV FS SCH ×4 (06:06→21:26)
--- NOTE | 2019-08-28 06:06 | NUR ---
GIVEN PROTONIX, PT TOLERATED WELL. BS CHECKED, 158, ADMINISTER INSULIN MD ORDERED. PT TOLERATED WELL.
[2019-08-28] MEDS: INSULIN LISPRO SLIDING SCALE 100 UNITS/ML VIAL SUBQ PRN ×2 (06:09→17:39)
--- NOTE | 2019-08-28 07:18 | NUR ---
ENDORSED PT TO DAY SHIFT NURSE. PT IN STABLE CONDITION.
--- NOTE | 2019-08-28 07:19 | NUR ---
RECEIVED PATIENT FROM FUR BLOWER NURSE. PATIENT IS AWAKE. AOX1 TO NAME. RESPIRATIONS EVEN AND UNLABORED, ROOM AIR. VISIBLE CHEST RISE NOTED. ON TELE MONITORING. ABDOMEN SOFT AND ROUND. PATIENT IS NON-AMBULATORY. SKIN WARM AND DRY. BILATERAL AKA NOTED. LEFT AKA HAS DRESSING. NO DRAINAGE NOTED. PATIENT HAS SUPRAPUBIC CATHETER. DRESSING INTACT. IV IN THE RIGHT FOREARM G 22 RUNNING NS AT 20 ML/HR. IV PATENT AND INTACT. BED IN LOW POSITION. CALL LIGHT IS WITHIN REACH. WILL CONTINUE TO MONITOR
[2019-08-28 07:20] LABS: MAGNESIUM 1.9 mg/dL (1.8-2.4); PHOSPHORUS 5.2 mg/dL (2.5-4.9)
[2019-08-28 07:30] LABS: BASOPHILS % (AUTO) 0.3 % (0.0-2.0); EOSINOPHILS # (AUTO) 0.1 K/uL (0-0.4); EOSINOPHILS % (AUTO) 0.5 % (0.0-4.0); HEMOGLOBIN 7.7 g/dL (12.0-18.0); LYMPHOCYTES # (AUTO) 0.9 K/uL (2.0-11.5); LYMPHOCYTES % (AUTO) 7.4 % (20.5-51.1); MEAN CORPUSCULAR HEMOGLOBIN 30 pg (27-31); MEAN CORPUSCULAR HGB CONC 32 g/dL (33-37); MEAN CORPUSCULAR VOLUME 92.5 fL (80-94); MONOCYTES # (AUTO) 0.5 K/uL (0.8-1.0); MONOCYTES % (AUTO) 4.3 % (1.7-9.3); NEUTROPHILS % (AUTO) 87.5 % (42.2-75.2); PLATELET COUNT (AUTO) 376 K/uL (140-450); RED CELL DISTRIBUTION WIDTH 19.7 % (11.6-13.7); WHITE BLOOD COUNT (AUTO) 11.5 K/uL (4.8-10.8)
[2019-08-28 07:41] LABS: CARBON DIOXIDE 27.1 mmol/L (21-32); CREATININE 3.5 mg/dL (0.7-1.3); POTASSIUM 3.1 mmol/L (3.5-5.1)
[2019-08-28 08:00] VITALS: BP 160/89
[2019-08-28] MEDS: DOCUSATE SODIUM 100 MG GELCAP PO SCH ×2 (09:00→21:28)
[2019-08-28] MEDS: FAMOTIDINE 20 MG TAB PO SCH (09:27)
[2019-08-28] MEDS: NIFEdipine 60 MG TABER PO SCH ×2 (09:27→21:28)
[2019-08-28] MEDS: CARVEDILOL 12.5 MG TAB PO SCH ×2 (09:28→16:57)
[2019-08-28] MEDS: ALLOPURINOL 100 MG TAB PO SCH (09:31)
--- NOTE | 2019-08-28 09:36 | NUR ---
GIVEN MORNING MEDICATIONS PO. HEPARIN SUBQ IN THE RIGHT INNER ARM. PATIENT TOLERATED WELL. PATIENT VERBALIZED UNDERSTANDING. WILL CONTINUE TO MONITOR
--- NOTE | 2019-08-28 10:34 | NUR ---
MADE ROUNDS. PATIENT IS WATCHING TV AT THIS TIME. DENIES PAIN. BED IN LOW POSITION. CALL LIGHT IS WITHIN REACH. WILL CONTINUE TO MONITOR
--- NOTE | 2019-08-28 11:20 | NUR ---
URINE SAMPLE COLLECTED
--- NOTE | 2019-08-28 11:30 | NUR ---
BLOOD GLUCOSE CHECK: 125. NO INSULIN COVERAGE
[2019-08-28 12:00] VITALS: BP 143/63
[2019-08-28] MEDS ORDERED: VANCOMYCIN 750 MG in DEXTROSE 5% 250 ML IV SCH (13:00)
--- NOTE | 2019-08-28 13:00 | NUR ---
CHANGED SURGICAL WOUND DRESSING S/P LEFT AKA. ALDO INTACT. CHANGED PRESSURE ULCER DRESSING IN THE SACROCOCCYNX, CLEANED WITH NS, PAT DRIED, APPLIED THERAHONEY GEL, AND PLACED OPTIFOAM DRESSING.
--- NOTE | 2019-08-28 13:01 | NUR ---
PICTURE OF THE SURGICAL SITE, LEFT KNEE, TAKEN. MEASURED WOUND 13X1.
[2019-08-28] MEDS: THERAHONEY GEL 42.5 GM TP SCH (13:06)
[2019-08-28] MEDS: GAUZE TP SCH (13:06)
--- NOTE | 2019-08-28 13:10 | NUR ---
HANG EMILIANO VIA IVPB. EXPLAINED TO PATIENT MED. PATIENT VERBALIZED UNDERSTANDING. BED IN LOW POSITION. CALL LIGHT IS WITHIN REACH. WILL CONTINUE TO MONITOR
--- NOTE | 2019-08-28 13:44 | NUR ---
GIVEN VANCOMYCIN VIA IVPB. EXPLAINED TO PATIENT INDICATION. WILL CONTINUE TO MONITOR. BED IN LOW POSITION. CALL LIGHT IS WITHIN REACH.
[2019-08-28] MEDS ORDERED: POTASSIUM CHLORIDE 10 MEQ TABER PO SCH (14:00)
--- NOTE | 2019-08-28 14:01 | NUR ---
GIVEN KDUR PO FOR K LEVEL OF 3.1. EXPLAINED TO PATIENT INDICATION. PATIENT VERBALIZED UNDERSTANDING. WILL CONTINUE TO MONITOR. BED IN LOW. CALL LIGHT IS WITHIN REACH.
[2019-08-28 14:02] LABS: BARBITURATE, URINE NEG. ng/ml (NEG <=200); BENZODIAZEPINE, URINE NEG. ng/mL (NEG <=200); CANNABINOID, URINE NEG. ng/mL (NEG <=50); COCAINE, URINE NEG. ng/mL (NEG <=300); OPIATE, URINE NEG. ng/mL (NEG <=2000); PHENCYCLIDINE SCREEN,URINE NEG. ng/mL (NEG <=25)
[2019-08-28 15:06] LABS: APPEARANCE,URINE CLOUDY (CLEAR); BILIRUBIN,URINE NEGATIVE (NEGATIVE); BLOOD, URINE 1+ (NEGATIVE); COLOR,URINE STRAW (YELLOW); LEUKOCYTE ESTERASE ,URINE 3+ (NEGATIVE); NITRITE, URINE NEGATIVE (NEGATIVE); UGLUCOSE NEGATIVE (NEGATIVE)
--- NOTE | 2019-08-28 15:06 | NUR ---
MADE ROUNDS. PATIENT DENIES ANY PAIN. NO SIGNS OF DISTRESS NOTED. BED IN LOW. CALL LIGHT IS WITHIN REACH. WILL CONTINUE TO MONITOR
[2019-08-28 16:00] VITALS: BP 176/71
--- NOTE | 2019-08-28 16:30 | NUR ---
BLOOD GLUCOSE CHECK: 186. WILL GIVE INSULIN
--- NOTE | 2019-08-28 16:58 | NUR ---
GAVE SCHEDULED COREG FOR HTN. EXPLAINED TO PATIENT INDICATION. PATIENT VERBALIZED UNDERSTANDING. WILL CONTINUE TO MONITOR
[2019-08-28] MEDS: NACL 0.9% 1,000 ML IV SCH (17:15)
--- NOTE | 2019-08-28 17:48 | NUR ---
GIVEN INSULIN FOR BLOOD SUGAR 186 IN THE LEFT LOWER ABDOMEN AREA. PT AWARE OF THE INDICATION OF THE MED. WILL CONTINUE TO MONITOR
--- NOTE | 2019-08-28 18:50 | NUR ---
PATIENT IS EATING DINNER AT THIS TIME. NO SIGNS OF DISTRESS NOTED.
--- NOTE | 2019-08-28 19:10 | NUR ---
ENDORSED TO OR DIRECTOR NURSE. PATIENT IS IN STABLE CONDITION.
--- NOTE | 2019-08-28 19:10 | NUR ---
RECEIVED PATIENT REPORT. PT AWAKE AND ALERT IN BED. PT ON ROOM AIR. NO SOB, NO C/O PAIN. DRESSING NOTED TO LEFT AKA. DRESSING CLEAN, DRY AND INTACT. SUPRAPUBIC CATH IN PLACE, DRAINING CLOUDY YELLOW URINE. LEFT ARM FISTULA WITH BRUIT AND THRILL NOTED. PATIENT ON TELE MONITORING. BED LOWERED WITH CALL LIGHT WITHIN REACH
[2019-08-28 20:00] VITALS: BP 140/65
[2019-08-28] MEDS: hydrALAZINE 25 MG TAB PO SCH (21:24)
--- NOTE | 2019-08-28 21:25 | NUR ---
BS 71. PT GIVEN JUICE. NO APPARENT SIGNS OF DISTRESS. WILL RECHECK BLOOD SUGAR
[2019-08-28] MEDS: DONEPEZIL 10 MG TAB PO SCH (21:26)
[2019-08-28] MEDS: LATANOPROST 0.005% OP 2.5 ML BTL OP SCH (21:28)
[2019-08-28] MEDS: DOXAZOSIN 2 MG TAB PO SCH (21:29)
--- NOTE | 2019-08-28 21:30 | NUR ---
ADMINISTERED SCHEDULED MEDS. PT TOLERATED WELL
[2019-08-28] MEDS: TAMSULOSIN 0.4 MG CAP PO SCH (21:37)
[2019-08-29] VITALS: BP 163/65
[2019-08-29] MEDS: PIPERACILLIN/TAZOBACTAM 2.25 GM in DEXTROSE 5% 50 ML IV SCH ×3 (04:36→22:11)
[2019-08-29 04:37] VITALS: BP 168/75
[2019-08-29] MEDS: BLOOD GLUCOSE MONITORING 1 DEV DEV FS SCH ×4 (06:20→21:00)
[2019-08-29] MEDS: PANTOPRAZOLE 40 MG TABEC PO SCH (06:21)
[2019-08-29 07:06] LABS: BASOPHILS # (AUTO) 0.1 K/uL (0.00-0.22); BASOPHILS % (AUTO) 0.5 % (0.0-2.0); EOSINOPHILS # (AUTO) 0.1 K/uL (0-0.4); EOSINOPHILS % (AUTO) 0.8 % (0.0-4.0); HEMATOCRIT 24.5 % (36-52); HEMOGLOBIN 7.8 g/dL (12.0-18.0); LYMPHOCYTES # (AUTO) 0.7 K/uL (2.0-11.5); LYMPHOCYTES % (AUTO) 6.9 % (20.5-51.1); MEAN CORPUSCULAR HEMOGLOBIN 30 pg (27-31); MEAN CORPUSCULAR HGB CONC 32 g/dL (33-37); MEAN CORPUSCULAR VOLUME 92.7 fL (80-94); MONOCYTES # (AUTO) 0.5 K/uL (0.8-1.0); MONOCYTES % (AUTO) 4.7 % (1.7-9.3); NEUTROPHILS # (AUTO) 9.5 K/uL (1.8-7.7); NEUTROPHILS % (AUTO) 87.1 % (42.2-75.2); PLATELET COUNT (AUTO) 358 K/uL (140-450); RED BLOOD CELL COUNT(AUTO) 2.64 MIL/uL (4.20-6.10); RED CELL DISTRIBUTION WIDTH 19.2 % (11.6-13.7); WHITE BLOOD COUNT (AUTO) 10.9 K/uL (4.8-10.8)
[2019-08-29 07:23] LABS: ANION GAP 15.4 (8-16); CARBON DIOXIDE 24.9 mmol/L (21-32); POTASSIUM 4.3 mmol/L (3.5-5.1)
--- NOTE | 2019-08-29 07:27 | NUR ---
PT REPORT GIVEN TO AM NURSE. PT ENDORSED IN STABLE CONDITION
--- NOTE | 2019-08-29 07:28 | NUR ---
RECEIVED REPORT FROM SUPERVISOR LITHARGE NURSE. PATIENT LYING DOWN IN BED. NO DISTRESS NOTED. DENIES ANY PAIN. AAOX2, CALM, COOPERATIVE, SKIN COLOR APPROPRIATE TO ETHNICITY, WARM TO TOUCH. S/P LEFT AKA ON 08/24/[address] WHATLEY, DRESSING DRY AND INTACT. HX OF RIGHT AKA. RESPIRATIONS EVEN, UNLABORED, ON ROOM AIR. IV SITE INTACT, PATENT, AND INFUSING IVF PER MD ORDERS. REVIEWED PLAN OF CARE WITH PATIENT. PATIENT VERBALIZED UNDERSTANDING, REINFORCEMENT NEEDED. SAFETY MEASURES IN PLACE, CALL LIGHT WITHIN REACH. WILL CONTINUE TO MONITOR.
[2019-08-29 07:30] LABS: MAGNESIUM 2.1 mg/dL (1.8-2.4); PHOSPHORUS 7.1 mg/dL (2.5-4.9)
[2019-08-29 08:00] VITALS: BP 149/63
[2019-08-29] MEDS: CARVEDILOL 12.5 MG TAB PO SCH ×2 (08:00→16:26)
[2019-08-29 08:47] LABS: CREATININE 4.2 mg/dL (0.7-1.3)
[2019-08-29] MEDS: NIFEdipine 60 MG TABER PO SCH ×2 (09:00→21:56)
--- NOTE | 2019-08-29 09:00 | NUR ---
PATIENT SITTING DOWN IN BED WATCHING TV. CONDITION UNCHANGED. WILL CONTINUE TO MONITOR.
[2019-08-29] MEDS: ALLOPURINOL 100 MG TAB PO SCH (10:24)
[2019-08-29] MEDS: FAMOTIDINE 20 MG TAB PO SCH (10:24)
[2019-08-29] MEDS: DOCUSATE SODIUM 100 MG GELCAP PO SCH ×2 (10:25→21:56)
--- NOTE | 2019-08-29 10:42 | NUR ---
PATIENT SITTING DOWN IN BED. SCHEDULED MEDICATIONS DUE GIVEN. WILL CONTINUE TO MONITOR.
--- NOTE | 2019-08-29 11:00 | NUR ---
NOTICED THAT SUPRAPUBIC CATHETER CAME OUT, CATHETER BULB LOOK DEFLATED. NOTIFIED DR. MCCRACKEN, PER MD COVER WITH DRESSING FOR NOW AND HE WILL CONSULT UROLOGIST. WILL CONTINUE TO MONITOR.
[2019-08-29 12:00] VITALS: BP 106/54
[2019-08-29] MEDS: INSULIN LISPRO SLIDING SCALE 100 UNITS/ML VIAL SUBQ PRN (12:34)
--- NOTE | 2019-08-29 12:35 | NUR ---
SCHEDULED MEDICATIONS DUE GIVEN. WILL CONTINUE TO MONITOR.
[2019-08-29] MEDS: THERAHONEY GEL 42.5 GM TP SCH (12:36)
[2019-08-29] MEDS: GAUZE TP SCH (12:36)
[2019-08-29 16:00] VITALS: BP 134/50
[2019-08-29] MEDS: EPOETIN ALFA 10,000 UNITS/ML VIAL IV SCH (16:25)
[2019-08-29] MEDS: FERROUS SULFATE 325 MG TABEC PO SCH (16:25)
[2019-08-29] MEDS: NACL 0.9% 1,000 ML IV SCH (16:26)
--- NOTE | 2019-08-29 16:29 | NUR ---
HD NURSE AT BEDSIDE. SCHEDULED MEDICATIONS DUE GIVEN. PROCRIT TO BE ADMINISTERED BY HD NURSE AFTER DIALYSIS. WILL CONTINUE TO MONITOR.
[2019-08-29] MEDS ORDERED: FERROUS SULFATE 325 MG TABEC PO SCH (17:00)
--- NOTE | 2019-08-29 18:00 | NUR ---
PATIENT LYING IN BED. HEMODIALYSIS IN PROCESS. NO DISTRESS NOTED. CONDITION UNCHANGED. WILL CONTINUE TO MONITOR.
--- NOTE | 2019-08-29 19:20 | NUR ---
RECEIVED REPORT FROM DAY SHIFT NURSE. PT LYING ON BED, AAOX1.HD ON GOING, DIALYSIS NURSE AT BEDSIDE. AV FISTULA TO LEFT UPPER ARM. DENIES PAIN OR SOB. ON ROOM AIR. IV TO RIGHT UPPER ARM #22G, NS AT 20 ML/HR. CONTRACTED PRATEEK. UPPER EXT. PT HAS RIGHT ABOVE KNEE AMPUTATION, LEFT ABOVE KNEE AMPUTATION WITH DRESSING ON THE STUMP, CLEAN DRY AND INTACT. SUPRAPUBIC CATH FELL OFF THIS AFTERNOON, DR. KEENE IN THE ROOM TO SEE PT. SAFETY PRECAUTION IN PLACE. CALL LIGHT WITHIN REACH.
--- NOTE | 2019-08-29 19:32 | NUR ---
GAVE REPORT TO INFORMATICS EDUCATOR NURSE FOR CONTINUITY OF CARE. PATIENT IN STABLE CONDITION.
--- NOTE | 2019-08-29 19:45 | NUR ---
DIALYSIS DONE. 3L OUTPUT. PT RESTING IN BED COMFORTABLY.
--- NOTE | 2019-08-29 21:00 | NUR ---
PT REFUSED BLOOD SUGAR CHECK. DR. KEENE MADE AWARE.
[2019-08-29] MEDS: hydrALAZINE 25 MG TAB PO SCH (21:57)
[2019-08-29] MEDS: DOXAZOSIN 2 MG TAB PO SCH (21:58)
[2019-08-29] MEDS: DONEPEZIL 10 MG TAB PO SCH (21:58)
[2019-08-29] MEDS: TAMSULOSIN 0.4 MG CAP PO SCH (21:58)
[2019-08-29] MEDS: LATANOPROST 0.005% OP 2.5 ML BTL OP SCH (21:59)
--- NOTE | 2019-08-30 00:43 | NUR ---
ENDORSED PT TO ANOTHER ENVIRONMENTAL HEALTH TECHNICIAN NURSE. PT IN STABLE CONDITION.
--- NOTE | 2019-08-30 00:45 | NUR ---
REPORT RECEIVED FROM PUSHPA JOSHI FOR CONTINUITY OF CARE. PT IN STABLE CONDITION.
[2019-08-30] MEDS: Z-GUARD PASTE TP SCH ×2 (01:00→16:47)
--- NOTE | 2019-08-30 02:55 | NUR ---
PT SLEEPING COMFORTABLY BUT AROUSABLE. NO S/S OF DISTRESS NOTED. NO COMPLAINTS OF PAIN. NO SOB. AFEBRILE. WILL CONTINUE TO MONITOR.
[2019-08-30] MEDS: PIPERACILLIN/TAZOBACTAM 2.25 GM in DEXTROSE 5% 50 ML IV SCH ×3 (04:26→21:21)
--- NOTE | 2019-08-30 04:26 | NUR ---
EMILIANO HUNG AND RUNNING. PT TOLERATED WELL.
[2019-08-30] MEDS: PANTOPRAZOLE 40 MG TABEC PO SCH (06:02)
[2019-08-30] MEDS: BLOOD GLUCOSE MONITORING 1 DEV DEV FS SCH ×4 (06:03→21:33)
--- NOTE | 2019-08-30 06:03 | NUR ---
PROTONIX GIVEN PO. BS 110. NO INSULIN COVERAGE NEEDED. PT TOLERATED WELL.
--- NOTE | 2019-08-30 06:50 | NUR ---
PT SLEEPING COMFORTABLY BUT AROUSABLE. PT IN STABLE CONDITION.
--- NOTE | 2019-08-30 07:10 | NUR ---
RECEIVED REPORT FROM BSS SOLUTION ARCHITECT NURSE KATY. PT AAOX 2-3, WILL NEED REORIENTATION. PT IV ON RT UA 22 GA RUNNING IVF PER ORDER. RESPIRATIONS EVEN AN DUNLABORED ON RA. ABD SOFT, ACTIVE BS. PT HAS AV SHUNT ON LT ARM, HAD HD YESTERDAY, OUTPUT 3.5L. PT HAS HX OF RT AKA, LT BKA ON 08/24 -NOTED DRESSING CLEAN, DRY AND INTACT. PT IS ON FALL RISK PRECAUTIONS, SAFETY MEASURES IN PLACE, CALL LIGHT WITHIN REACH. REVIEWED POC WITH PT, PT VERBALIZED UNDERSTANDING AND WILL NEED REMINDERS.
[2019-08-30 07:49] LABS: BASOPHILS # (AUTO) 0.1 K/uL (0.00-0.22); BASOPHILS % (AUTO) 0.7 % (0.0-2.0); EOSINOPHILS # (AUTO) 0.1 K/uL (0-0.4); EOSINOPHILS % (AUTO) 0.7 % (0.0-4.0); HEMATOCRIT 24.9 % (36-52); HEMOGLOBIN 7.9 g/dL (12.0-18.0); LYMPHOCYTES # (AUTO) 0.9 K/uL (2.0-11.5); LYMPHOCYTES % (AUTO) 9.2 % (20.5-51.1); MEAN CORPUSCULAR HEMOGLOBIN 30 pg (27-31); MEAN CORPUSCULAR HGB CONC 32 g/dL (33-37); MEAN CORPUSCULAR VOLUME 93.5 fL (80-94); MONOCYTES # (AUTO) 0.4 K/uL (0.8-1.0); MONOCYTES % (AUTO) 3.6 % (1.7-9.3); NEUTROPHILS # (AUTO) 8.7 K/uL (1.8-7.7); NEUTROPHILS % (AUTO) 85.8 % (42.2-75.2); PLATELET COUNT (AUTO) 400 K/uL (140-450); RED BLOOD CELL COUNT(AUTO) 2.67 MIL/uL (4.20-6.10); WHITE BLOOD COUNT (AUTO) 10.2 K/uL (4.8-10.8)
[2019-08-30 08:00] VITALS: BP 153/61
[2019-08-30] MEDS: CARVEDILOL 12.5 MG TAB PO SCH ×2 (09:31→17:12)
[2019-08-30] MEDS: NIFEdipine 60 MG TABER PO SCH ×2 (09:32→21:19)
--- NOTE | 2019-08-30 09:32 | NUR ---
NOTED BILATERAL AKA, DRESSING CLEAN, DRY AND INTACT ON LT LIMB. SUPRAPUBIC CATHETER SITE COVERED WITH GAUZE IS AWARE THAT PT'S CATHETER DISLODGED. MEDICATIONS ADMINISTERED PER ORDER, EXPLAINED MEDICATIONS AND POTENTIAL SIDE EFFECTS TO PT.
[2019-08-30] MEDS: FERROUS SULFATE 325 MG TABEC PO SCH ×2 (09:33→17:13)
[2019-08-30] MEDS: DOCUSATE SODIUM 100 MG GELCAP PO SCH ×2 (09:33→21:19)
[2019-08-30] MEDS: ALLOPURINOL 100 MG TAB PO SCH (09:34)
[2019-08-30] MEDS: FAMOTIDINE 20 MG TAB PO SCH (09:34)
[2019-08-30 11:05] LABS: ANION GAP 15.4 (8-16); CARBON DIOXIDE 24.9 mmol/L (21-32); POTASSIUM 3.3 mmol/L (3.5-5.1)
--- NOTE | 2019-08-30 11:30 | NUR ---
BS AT 129, PT HAS NO S/S OF HYPERGLYCEMIA.
[2019-08-30 11:32] LABS: MAGNESIUM 1.9 mg/dL (1.8-2.4)
--- NOTE | 2019-08-30 12:50 | NUR ---
ASSISTED DR. BUSTILLOS IN PLACING SUPRAPUBIC CATHETER, OBSERVED STERILE TECHNIQUE, NOTED YELLOW, CLOUDY URINE DRAINING.
[2019-08-30] MEDS: THERAHONEY GEL 42.5 GM TP SCH (13:12)
[2019-08-30] MEDS: GAUZE TP SCH (13:12)
--- NOTE | 2019-08-30 15:10 | NUR ---
RECEIVED CONSENT FROM PT'S DAUGHTER FOR XR PELVIS WITH CONTRAST. PROCEDURE DONE AT BEDSIDE. PT TOLERATED WELL.
[2019-08-30] MEDS ORDERED: HYDRAGUARD CREAM TP ONE ×2 (15:22→16:30)
[2019-08-30] MEDS ORDERED: POTASSIUM CHLORIDE 10 MEQ TABER PO SCH (15:30)
[2019-08-30 16:00] VITALS: BP 140/66
--- NOTE | 2019-08-30 16:04 | NUR ---
08/30/19 RD FOLLOW UP COMPLETED PLEASE REFER TO NUTRITION ASSESSMENT UNDER CARE ACTIVITY FOR ESTIMATED NUTRITIONAL NEEDS. 1. CONTINUE RENAL, CCHO 60 GM, NEPRO TID, TAYO BID DIET TOLERATED 2. RD TO FOLLOW-UP 3-5 DAYS, MODERATE RISK MOON BOO, RD
[2019-08-30] MEDS ORDERED: HYDRAGUARD CREAM TP PRN (16:35)
[2019-08-30] MEDS: NACL 0.9% 1,000 ML IV SCH (17:15)
--- NOTE | 2019-08-30 17:16 | NUR ---
BS AT 142, PT HAS NO S/S OF HYPERGLYCEMIA, WILL CONTINUE TO MONITOR.
--- NOTE | 2019-08-30 19:15 | NUR ---
ENDORSED PT TO MOTOR RUNNER NURSE KATY PT HAS NO SIGNS OF DISTRESS AT THIS TIME.
--- NOTE | 2019-08-30 19:16 | NUR ---
REPORT RECEIVED FROM AM NURSE AT BEDSIDE. PT IN STABLE CONDITION. AAOX4. INTRODUCE SELF TO PT. BOARD UPDATED. NO COMPLAINTS OF PAIN. NO SOB. AFEBRILE. PT IS BEDBOUND WITH BILATERAL AKA OF THE LOWER EXTREMITIES. PT HAS SUPRAPUBIC CATHETER. IV SITE R UA 22G RUNNING NS@20ML/HR PATENT AND INTACT. SKIN WARM, DRY, AND NOT INTACT DUE TO UNSTAGEABLE PRESSURE WOUND OF THE SACRUM, SURGICAL WOUND OF THE AKA, AND ULCERS OF THE PERINEAL AREA. BED LOCKED IN LOW POSITION. CALL THOMAS WITHIN REACH. SAFETY PRECAUTION IN PLACE. ALL NEEDS MET AT THIS TIME.
[2019-08-30] MEDS: TAMSULOSIN 0.4 MG CAP PO SCH (21:19)
--- NOTE | 2019-08-30 21:19 | NUR ---
ADALAT, APRESOLINE, ARICEPT, CARDURA, COLACE, AND FLOMAX GIVEN PO. HEPARIN GIVEN SUBQ. XALATAN 1 DROP PER EYE. ZOVAN HUNG AND RUNNING. BS 132. NO INSULIN COVERAGE NEEDED.
[2019-08-30] MEDS: hydrALAZINE 25 MG TAB PO SCH (21:20)
[2019-08-30] MEDS: DONEPEZIL 10 MG TAB PO SCH (21:20)
[2019-08-30] MEDS: DOXAZOSIN 2 MG TAB PO SCH (21:20)
[2019-08-30] MEDS: LATANOPROST 0.005% OP 2.5 ML BTL OP SCH (21:24)
--- NOTE | 2019-08-30 22:00 | NUR ---
WOUND DRESSING CHANGED.
--- NOTE | 2019-08-30 23:15 | NUR ---
PT SLEEPING COMFORTABLY BUT AROUSABLE. NO S/S OF DISTRESS NOTED. WILL CONTINUE TO MONITOR.
[2019-08-31] VITALS: BP 147/60
[2019-08-31] MEDS: Z-GUARD PASTE TP SCH ×2 (00:50→13:34)
--- NOTE | 2019-08-31 02:20 | NUR ---
PT SLEEPING COMFORTABLY BUT AROUSABLE. NO S/S OF DISTRESS NOTED. RESPIRATIONS EVEN, UNLABORED, AND WNL. WILL CONTINUE TO MONITOR.
[2019-08-31] MEDS: PIPERACILLIN/TAZOBACTAM 2.25 GM in DEXTROSE 5% 50 ML IV SCH ×3 (04:15→20:35)
--- NOTE | 2019-08-31 04:15 | NUR ---
EMILIANO HUNG AND RUNNING. PT TOLERATING WELL.
[2019-08-31] MEDS: PANTOPRAZOLE 40 MG TABEC PO SCH (05:38)
--- NOTE | 2019-08-31 05:38 | NUR ---
PROTONIX GIVEN PO. BS 115. NO INSULIN COVERAGE NEEDED.
[2019-08-31] MEDS: BLOOD GLUCOSE MONITORING 1 DEV DEV FS SCH ×4 (05:39→20:33)
--- NOTE | 2019-08-31 06:40 | NUR ---
PT SLEEPING COMFORTABLY BUT AROUSABLE. PT IN STABLE CONDITION.
--- NOTE | 2019-08-31 07:25 | NUR ---
RECEIVED BEDSIDE SHIFT REPORT FROM RN LABOR AND DELIVERY NURSE FOR CONTINUATION OF CARE. PATIENT IS RESTING IN BED, SELECTIVELY MUTE WITH STAFF WHEN GREETED. IV INTACT RIGHT UPPER ARM 22 G RUNNING NS @ 20 ML/HR. TOLERATING IVF WITHOUT DISTRESS. SACRAL PRESSURE ULCER AND LEFT BUTTOCK PRESSURE WOUND COVERED IN OPTIFOAM DRESSING BANDAGE. DIALYSIS SCHEDULED FOR TODAY. RECEIVING ZOSYN ANTIBIOTICS. SUPRAPUBIC CATHETER INTACT. WILL CONTINUE TO MONITOR.
[2019-08-31 08:00] VITALS: BP 167/67
[2019-08-31] MEDS: EPOETIN ALFA 10,000 UNITS/ML VIAL IV SCH (08:47)
[2019-08-31] MEDS: FERROUS SULFATE 325 MG TABEC PO SCH ×2 (08:48→18:37)
[2019-08-31] MEDS: DOCUSATE SODIUM 100 MG GELCAP PO SCH ×2 (08:48→20:35)
[2019-08-31] MEDS: CARVEDILOL 12.5 MG TAB PO SCH ×2 (08:48→18:37)
[2019-08-31] MEDS: ALLOPURINOL 100 MG TAB PO SCH (08:48)
[2019-08-31] MEDS: FAMOTIDINE 20 MG TAB PO SCH (08:54)
--- NOTE | 2019-08-31 08:55 | NUR ---
WOUND CARE RE-EVALUATION NOTE: SKIN ASSESSMENT DONE AND NOTICE OF NEW PRESSURE ULCERS DEVELOPED TO LEFT ISCHIUM AND BASE OF PELVIC BONE, PT IS VERY SKINNY SKIN TO BONE, MALNUTRITION, ALBUMIN 2.1, PT. IS ALSO ON HD 3XWEEK, PER PRIMARY RN PT. IS INCONTINENT OF LOOSE BM 2-3 TIMES A DAY, DR. CUEVAS AND DR. MCCRACKEN NOTIFIED OF CHANGE OF CONDITION. DUE TO PT. MEDICAL CONDITIONS, DELAY WOUND HEALING AND FURTHER SKIN BREAKS ARE UNAVOIDABLE. POC DISCUSSED WITH DOCTORS, PRIMARY RN AND PT. PT. VERBALIZES UNDERSTANDING PRIMARY RN NOTIFIED TO TAKE PICTURES WITH ALL NEW SKIN OPEN AREAS. INTEGUMENTARY: -SUPRAPUBIC ALANNA-OSTOMY SKIN DRY AND INTACT -RIGHT AKA STUMP SKIN INTACT -LEFT AKA STUMP ALDO INTACT -BASE OF SCROTAL AREA MOISTURE ASSOCIATE DERMATITIS WITH MULTIPLE PIN POINT EROSIONS -LEFT ISCHIUM PRESSURE ULCER UN-STAGEABLE 2X1CM DEPTH IS UTD, DRY YELLOW SLOUGH TO WOUND BED, ALANNA WOUND SKIN THIN WITH REDNESS INDICATED FURTHER DAMAGE -BASE OF PELVIC BONE PRESSURE ULCER UN-STAGEABLE 1X1CM DEPTH IS UTD, DRY YELLOW SLOUGH TO WOUND BED, ALANNA WOUND SKIN MOIST WITH REDNESS INDICATED FURTHER DAMAGE -RIGHT TROCHANTER 1X1CM BLANCHABLE REDNESS -SACRAL PRESSURE ULCER UN-STAGEABLE, 3X3.5CM, WOUND BED 100% YELLOW SLOUGH, ALANNA-WOUND HEALED SCAR PALE IN COLOR. RECOMMENDATIONS: -APPLY RECTAL BAG FOR MOISTURE CONTROL, PLEASE KEEP SKIN CLEAN AND DRY AT ALL TIMES. -CLEANSE LEFT FOOT AKA SURGICAL WOUND/ALDO WITH NS. PAINT WITH BETADINE SOLUTION BID AND COVER WITH DRY DRESSING -CLEANSE SACRAL PRESSURE LEFT ISCHIUM AND BASE OF PELVIC ULCERS WITH NS. PAT DRY APPLY 2X2 SOAKED BETADINE XU. TO WOUND BED AND COVER WITH DRY DRESSING QD AND PRN IF SOILING. -CLEANSE BASE OF SCROTAL IAD WITH SOAP AND WATER, PAT DRY, APPLY Z-GUARD BID AND PRN -APPLY FOAM DRESSING TO RIGHT TROCHANTER CHANGE Q 7 DAYS AND PRN PREVENTION -CONTINUE TO FOLLOW SURGEON LEFT FOOT SURGICAL WOUND POST DISCHARGE -OFFLOAD BILATERAL STUMPS BY PLACING HEEL PROTECTORS AND ELEVATED WITH PILLOWS AT ALL TIMES, UNLESS OTHERWISE CONTRAINDICATED -PRESSURE REDISTRIBUTION SURFACE THERAPY -OFFLOAD BILATERAL STUMPS BY PLACING PILLOWS UNDER CALVES UNLESS OTHERWISE CONTRAINDICATED -TURN AND REPOSITION Q2H, OFFLOAD SACRALCOCCYX, RIGHT HIP BY TURNING RIGHT AND LEFT -CONTINUE TO FOLLOW RD RECOMMENDATIONS ALL ABOVE RECOMMENDATIONS DISCUSSED WITH PRIMARY RN WILL FOLLOW UP PT Q7-10 DAYS. PLEASE CONTACT WOUND CARE NURSE FOR ANY QUESTION AND CHANGE OF WOUND CONDITION. Addendum: 08/31/19 at 1230 by Sadia Ramos (Grace) RN PRESSURE ULCER MANAGEMENT DISCUSSED AND ORDER " HOB ELEVATED AT 30 DEGREE" CLARIFY WITH , PER NAWAF GUSTAFSON, ORDER PLACED DUE TO HEMODIALYSIS.
[2019-08-31] MEDS: NIFEdipine 60 MG TABER PO SCH ×2 (09:25→20:35)
--- NOTE | 2019-08-31 09:28 | NUR ---
MEDICATIONS ADMINISTERED PO, TOLERATED WITH NO SIGNS OF DISTRESS. [facility] DIALYSIS NURSE IS PRESENT AND PREPARED FOR HEMODIALYSIS TODAY, LABS, HD ORDER, AND 2 L OF NS GIVEN TO VIGIL. ENDORSED TO VIGIL THAT BLOOD PRESSURE MEDICATIONS WERE GIVEN DUE TO HIGH BP: 167/67. SOILED LINEN, CHANGED WITH HELP OF HEALTHCARE MANAGER'S. WOUND CARE NURSE MICHEAL CONSULTED CHRISTIANO, DRESSING TO BE CHANGED AROUND 1030. SACRAL WOUND COVERED WITH OPTIFOAM DRESSING. WILL CONTINUE TO MONITOR.
--- NOTE | 2019-08-31 11:25 | NUR ---
PT. IS AT HD, WOUND CARE INSTRUCTIONS GIVEN TO PRIMARY RN AND VERBALIZES UNDERSTANDING.
--- NOTE | 2019-08-31 12:30 | NUR ---
[facility] DIALYSIS NURSE REPORTS 2 LITERS BEING WITHDRAWN FROM CHRISTIANO DURING HEMODIALYSIS. BLOOD PRESSURE 150/70. IV ANTIBIOTICS ADMINISTERED AND TOLERATING WELL. DRESSING CHANGE TO BE ADMINISTERED PER MARKETING PROJECT LEAD'S ORDERS. BLOOD SUGAR 175, COVERED WITH 2 UNITS OF HUMALOG INSULIN. PATIENT REPOSITIONED, DENIES PAIN AT THIS TIME. AAOX3, RESPONDS TO VERBAL COMMANDS. WILL CONTINUE TO MONITOR.
[2019-08-31] MEDS: INSULIN LISPRO SLIDING SCALE 100 UNITS/ML VIAL SUBQ PRN (12:34)
--- NOTE | 2019-08-31 13:30 | NUR ---
DRESSINGS CHANGED, SACRAL WOUND IS WHITE WITH SURROUNDING PINK TISSUE, EXCORIATION NOTED, RECTAL BAG IN PLACE PER WOUND CARE NURSE ORDERS, Z GUARD APPLIED, BETADINE SOAKED GAUZE APPLIED COVERED WITH DRY DRESSING. CHRISTIANO TOLERATED DRESSING CHANGE WELL. WILL CONTINUE TO MONITOR.
[2019-08-31] MEDS: GAUZE TP SCH (13:34)
--- NOTE | 2019-08-31 15:30 | NUR ---
PER MD, CHRISTIANO IS SET TO DISCHARGE TOMORROW AND IS ABLE TO RECEIVE DIALYSIS TOMORROW AT ACCEPTING SNF. CHRISTIANO REMAINS WITHDRAWN AND SELECTIVELY MUTE WITH STAFF. BED IS IN LOW POSITION, CALL LIGHT ON AND WITHIN REACH. WILL CONTINUE TO MONITOR.
[2019-08-31 16:00] VITALS: BP 147/64
[2019-08-31] MEDS: NACL 0.9% 1,000 ML IV SCH (17:15)
--- NOTE | 2019-08-31 17:30 | NUR ---
BLOOD SUGAR IS WNL, REQUIRING NO INSULIN COVERAGE. MEDICATIONS ADMINISTERED, TOLERATED WELL. VITAL SIGNS ARE STABLE. LINEN CHANGED. WILL CONTINUE TO MONITOR.
--- NOTE | 2019-08-31 19:25 | NUR ---
BEDSIDE SHIFT REPORT GIVEN TO ONCOMING MACHINE MARKER NURSE FOR CONTINUITY OF CARE.
--- NOTE | 2019-08-31 19:26 | NUR ---
REPORT RECEIVED FROM AM NURSE AT BEDSIDE. PT IN STABLE CONDITION. AAOX4. INTRODUCED SELF TO PT. BOARD UPDATED. NO COMPLAINTS OF PAIN. NO SOB. AFEBRILE. PT IS BEDBOUND. PT HAS PUCKETT. PT HAS RECTAL TUBE. IV SITE R UA 22G RUNNING NS@20ML/HR PATENT AND INTACT. SKIN WARM, DRY, AND NOT INTACT DUE TO MULTIPLE WOUNDS. SEE WOUND NOTES. BED LOCKED IN LOW POSITION. CALL THOMAS WITHIN REACH. SAFETY PRECAUTION IN PLACE. ALL NEEDS MET AT THIS TIME.
--- NOTE | 2019-08-31 20:33 | NUR ---
ADALAT, ARICEPT, CARDURA, COLACE, AND FLOMAX GIVEN PO. APRESOLINE HELD DUE TO NORMALIZED BP. HEPARIN GIVEN SUBQ. XALATAN GIVEN IN BOTH EYES. ZOSYN HUNG AND RUNNING. BS 126. NO INSULIN COVERAGE NEEDED. PT TOLERATED WELL.
[2019-08-31] MEDS: hydrALAZINE 25 MG TAB PO SCH ×2 (20:34→20:53)
[2019-08-31] MEDS: DOXAZOSIN 2 MG TAB PO SCH (20:34)
[2019-08-31] MEDS: DONEPEZIL 10 MG TAB PO SCH (20:34)
[2019-08-31] MEDS: TAMSULOSIN 0.4 MG CAP PO SCH (20:34)
[2019-08-31] MEDS: LATANOPROST 0.005% OP 2.5 ML BTL OP SCH (20:35)
--- NOTE | 2019-08-31 22:10 | NUR ---
PT IN BED LAYING COMFORTABLY IN BED. NO S/S OF DISTRESS NOTED. WILL CONTINUE TO MONITOR.
[2019-09-01] VITALS: BP 125/52
[2019-09-01] MEDS: Z-GUARD PASTE TP SCH ×2 (00:18→13:00)
--- NOTE | 2019-09-01 02:15 | NUR ---
PT SLEEPING COMFORTABLY BUT AROUSABLE. NO S/S OF DISTRESS NOTED. NO COMPLAINTS OF PAIN. NO SOB. AFEBRILE. WILL CONTINUE TO MONITOR.
[2019-09-01] MEDS: PIPERACILLIN/TAZOBACTAM 2.25 GM in DEXTROSE 5% 50 ML IV SCH (04:07)
--- NOTE | 2019-09-01 04:10 | NUR ---
CHANGED RECTAL BAG DUE TO LEAKING. Addendum: 09/01/19 at 0450 by Darien Vizcaino RN EMILIANO GAMBOA AND RUNNING. PT TOLERATING WELL.
[2019-09-01] MEDS: BLOOD GLUCOSE MONITORING 1 DEV DEV FS SCH ×3 (05:35→17:12)
[2019-09-01] MEDS: PANTOPRAZOLE 40 MG TABEC PO SCH (05:35)
--- NOTE | 2019-09-01 05:35 | NUR ---
PROTONIX GIVEN PO. PT TOLERATED WELL. BS 118. NO INSULIN COVERAGE NEEDED.
--- NOTE | 2019-09-01 06:50 | NUR ---
PT SLEEPING COMFORTABLY BUT AROUSABLE. PT IN STABLE CONDITION.
--- NOTE | 2019-09-01 07:10 | NUR ---
RECEIVED REPORT FROM BED AND BREAKFAST OPERATOR NURSE PT IS STABLE, NO SIGNS OF DISTRESS. PT HAS BILATERAL BKA. PT HAS IV RIGHT ARM 20G WITH NS INFUSING AT 20ML/HR. PT IS ON CCHO 60G RENAL DIET. WILL CONTINUE TO MONITOR.
[2019-09-01 08:00] VITALS: BP 146/58
[2019-09-01] MEDS: FAMOTIDINE 20 MG TAB PO SCH (08:13)
[2019-09-01] MEDS: DOCUSATE SODIUM 100 MG GELCAP PO SCH (08:13)
[2019-09-01] MEDS: FERROUS SULFATE 325 MG TABEC PO SCH ×2 (08:14→17:16)
[2019-09-01] MEDS: ALLOPURINOL 100 MG TAB PO SCH (08:14)
--- NOTE | 2019-09-01 08:15 | NUR ---
SCHEDULED MEDS GIVEN. BP MEDS WITHELD, PT'S BP IS 144/58. PT IS SCHEDULED FOR DIALYSIS TODAY. WILL CONTINUE TO MONITOR.
--- NOTE | 2019-09-01 10:45 | NUR ---
Per Dr Lantigua, electronic test technician had cancelled hemodialysis for today and will resume on tue as per pt's usual schedule. Pt will discharge straight to SNF today. BP meds nifedipine and carvidolol administered at this time.
[2019-09-01] MEDS: NIFEdipine 60 MG TABER PO SCH (10:51)
[2019-09-01] MEDS: CARVEDILOL 12.5 MG TAB PO SCH ×2 (10:52→17:17)
--- NOTE | 2019-09-01 11:50 | NUR ---
FREQUENT ROUNDING DONE. PT IS SLEEPING. NOO SIGNS OF DISTRESS. CALL LIGHT WITHIN PT'S REACH. BED ON LOW, SIDERAILS UP. WILL CONTINUE TO MONITOR
[2019-09-01] MEDS: INSULIN LISPRO SLIDING SCALE 100 UNITS/ML VIAL SUBQ PRN (12:37)
--- NOTE | 2019-09-01 13:40 | NUR ---
SACRAL WOUND AND LEFT AKA WERE ASSESSED, CLEANED AND CHANGED DRESSING. WILL CONTINUE TO MONITOR
[2019-09-01 13:53] LABS: BASOPHILS # (AUTO) 0.1 K/uL (0.00-0.22); BASOPHILS % (AUTO) 1.2 % (0.0-2.0); EOSINOPHILS % (AUTO) 0.6 % (0.0-4.0); HEMATOCRIT 28.7 % (36-52); HEMOGLOBIN 8.9 g/dL (12.0-18.0); LYMPHOCYTES # (AUTO) 1.6 K/uL (2.0-11.5); LYMPHOCYTES % (AUTO) 19.9 % (20.5-51.1); MEAN CORPUSCULAR HEMOGLOBIN 30 pg (27-31); MEAN CORPUSCULAR HGB CONC 31 g/dL (33-37); MEAN CORPUSCULAR VOLUME 95.8 fL (80-94); MONOCYTES # (AUTO) 0.3 K/uL (0.8-1.0); MONOCYTES % (AUTO) 4.3 % (1.7-9.3); NEUTROPHILS # (AUTO) 5.9 K/uL (1.8-7.7); PLATELET COUNT (AUTO) 461 K/uL (140-450); RED CELL DISTRIBUTION WIDTH 20.1 % (11.6-13.7); WHITE BLOOD COUNT (AUTO) 7.9 K/uL (4.8-10.8)
[2019-09-01 13:57] LABS: ANION GAP 15.6 (8-16); CARBON DIOXIDE 25.1 mmol/L (21-32); CREATININE 3.1 mg/dL (0.7-1.3); POTASSIUM 3.7 mmol/L (3.5-5.1)
[2019-09-01] MEDS: GAUZE TP SCH (13:57)
[2019-09-01 14:01] LABS: MAGNESIUM 2.1 mg/dL (1.8-2.4); PHOSPHORUS 3.5 mg/dL (2.5-4.9)
--- NOTE | 2019-09-01 15:17 | NUR ---
PER GAYATRI BOX LOADER, PT IS GOING TO [facility], ROOM 204 BED 2, DR. BROWNING ACCEPTING PHYSICIAN.
--- NOTE | 2019-09-01 15:33 | NUR ---
CALLED [facility], PER MILAGROS, PT DOES NOT MEET CRITERIA FOR [facility] AND NO MEDICAL NECESSITY. CALLED [facility], SPOKE WITH PARRISH, EARLIEST ETA WILL BE AT 7 PM, JUDIT/MARTHA ASSIGNED MADE AWARE.
--- NOTE | 2019-09-01 16:30 | NUR ---
BLD GLUCOSE CHECKED 129MG/DL. SCHEDULED MEDS GIVEN. PT TOLERATED WELL. WILL CONTINUE TO MONITOR
[2019-09-01] MEDS: NACL 0.9% 1,000 ML IV SCH (17:15)
--- NOTE | 2019-09-01 18:00 | NUR ---
REPORT GIVEN TO GIANFRANCO FROM [facility]. SPOKE TO JAVED REGARDING THE TRANSFER TO SNF.DAUGHTER VERBALIZED UNDERSATANDING.
--- NOTE | 2019-09-01 18:55 | NUR ---
PT IS D/C AND TAKEN BY EMT VIA GURNEY. ID BANDS AND IV REMOVED. PT IS STABLE.
[2019-09-03] MEDS ORDERED: FOAM DRESSING TP SCH (09:00)
== END 2019-09-01 19:00 | DRG 853 ==
LOC: MED 18:27 → MTU 21:31
PROVIDERS: ADMIT General Practice; ATTEND General Practice
PROC: 30233N1 Transfusion of Nonautologous Red Blood Cells into Peripheral Vein, Percutaneous Approach (ICD-10-PCS; 2019-08-23)
PROC: 0Y6D0Z3 Detachment at Left Upper Leg, Low, Open Approach (ICD-10-PCS; principal; 2019-08-25 15:00)
PROC: 5A1D70Z Performance of Urinary Filtration, Intermittent, Less than 6 Hours Per Day (ICD-10-PCS; 2019-08-29)
PROC: 5A1D70Z Performance of Urinary Filtration, Intermittent, Less than 6 Hours Per Day (ICD-10-PCS; 2019-08-31)
DX: A41.9 Sepsis, unspecified organism (principal); N18.6 End stage renal disease; M72.6 Necrotizing fasciitis; A48.0 Gas gangrene; E11.52 Type 2 diabetes mellitus with diabetic peripheral angiopathy with gangrene; N13.8 Other obstructive and reflux uropathy; I13.11 Hypertensive heart and chronic kidney disease without heart failure, with stage 5 chronic kidney disease, or end stage renal disease; E87.1 Hypo-osmolality and hyponatremia; E11.65 Type 2 diabetes mellitus with hyperglycemia; D64.9 Anemia, unspecified; E11.22 Type 2 diabetes mellitus with diabetic chronic kidney disease; F03.90 Unspecified dementia, unspecified severity, without behavioral disturbance, psychotic disturbance, mood disturbance, and anxiety; F17.210 Nicotine dependence, cigarettes, uncomplicated; F32.9 Major depressive disorder, single episode, unspecified; K21.9 Gastro-esophageal reflux disease without esophagitis; K59.09 Other constipation; Z66 Do not resuscitate; M10.9 Gout, unspecified; N40.1 Benign prostatic hyperplasia with lower urinary tract symptoms; E11.40 Type 2 diabetes mellitus with diabetic neuropathy, unspecified; L89.629 Pressure ulcer of left heel, unspecified stage; L89.890 Pressure ulcer of other site, unstageable; Z99.2 Dependence on renal dialysis; Z74.01 Bed confinement status; Z89.611 Acquired absence of right leg above knee; Z79.899 Other long term (current) drug therapy; Z89.422 Acquired absence of other left toe(s); Z99.3 Dependence on wheelchair
CPT/HCPCS: 36415; 71045; 72170; 73630; 80048; 80053; 80202; 80305; 81001; 82272; 82607; 82728; 82746; 82948; 83036; 83540; 83605; 83690; 83735; 83880; 84100; 84443; 84484; 85025; 85045; 85610; 85730; 86886; 86900; 86901; 86920; 87040; 87081; 87086; 87186; 88307; 90935; 93005; 93926; 99285; J0885; J1644; J1815; J2543; J2704; J3370; J3490; J7030; J7060; P9016; Q0092